=== PATIENT | female | born 1990 | race Caucasian/White ===

== ENCOUNTER → 2016-02-19 | Outpatient (CLI) | payer MEDICAID ==
[~2016-02-19] MED LIST: CIPR500T78 PO; IBP600T1 PO; IRON; NITR100C PO; PRENATAL VITAMIN; TYLENOL PO
--- NOTE | 2016-02-19 18:23 | Diagnostic Imaging Report ---
INDICATION: Size and dates Examination shows a single live intrauterine of 8 weeks 0 days +/- one week. Cardiac activity is seen with a rate of 158 beats per minute. No abnormality is seen at this time. IMPRESSION: There is a single live intrauterine of 8 weeks 0 days +/- one week. Dictated by: Dictated on workstation # [id number]
== END ==
LOC: RAD 12:57
PROVIDERS: ATTEND Family Medicine
DX: Z36 Encounter for antenatal screening of mother (principal); Z3A.08 8 weeks gestation of pregnancy
CPT/HCPCS: 76801

== ENCOUNTER → 2016-05-04 | Outpatient (CLI) | payer MEDICAID ==
--- NOTE | 2016-05-04 15:09 | Diagnostic Imaging Report ---
OB ultrasound. INDICATION: survey. FINDINGS: The heart rate is 153 beats per minute. The placenta is posterior. No placenta previa. No ventriculomegaly. The posterior fossa appears unremarkable. The stomach, the bladder, the cord insertion, and the kidneys appear unremarkable. The four-chamber view is not well seen as well as the spine and three-vessel cord due to position. growth parameters are all around 18 weeks and 5 days, concordant with the age based on first trimester ultrasound. IMPRESSION: Followup survey to reevaluate four-chamber view, spine and three-vessel cord is recommended. Dictated by: Dictated on workstation # [id number]
== END ==
LOC: RAD 09:31
PROVIDERS: ATTEND Family Medicine
DX: Z34.92 Encounter for supervision of normal pregnancy, unspecified, second trimester (principal)
CPT/HCPCS: 76805

== ENCOUNTER → 2016-06-17 | Outpatient (CLI) | payer MEDICAID ==
--- NOTE | 2016-06-17 13:06 | Diagnostic Imaging Report ---
INDICATION: Followup incomplete anatomical survey. COMPARISON: 05/04/2016. DISCUSSION: Transabdominal sonographic evaluation the gravid uterus was performed. Single live intrauterine is again demonstrated. EDC by the first ultrasound is 09/30/2016. Expected gestational age by the first ultrasound is 25 weeks 0 days. Normal amniotic fluid index measuring 10.6 in meters. presentation is cephalic. Grade 1 placenta is located posteriorly with no placenta previa. heart rate measures 161 beats per minute. There is good visualization of the four-chamber heart, spine, three-vessel cord on today's exam. No acute abnormality identified. IMPRESSION: 1. Single live intrauterine with good visualization of the four-chamber heart, spine, three-vessel cord. Dictated by: Dictated on workstation # [id number]
== END ==
LOC: RAD 10:08
PROVIDERS: ATTEND Family Medicine
DX: Z34.92 Encounter for supervision of normal pregnancy, unspecified, second trimester (principal); Z3A.25 25 weeks gestation of pregnancy
CPT/HCPCS: 76805

== ENCOUNTER 2016-08-23 11:32 | Outpatient (RCR) | payer MEDICAID ==
[~2016-08-23] VITALS: Ht 172.7 cm; Wt 100.7 kg
[2016-08-23 12:25] VITALS: BP 112/59
[2016-08-30 11:08] VITALS: BP 116/70
[2016-08-30 11:10] VITALS: BP 116/62
[2016-09-08 11:12] VITALS: BP 114/70
[2016-09-08 11:25] VITALS: BP 114/75
[2016-09-12 13:50] VITALS: BP 124/73
[2016-09-12 14:23] VITALS: BP 124/73
[2016-09-19 09:41] VITALS: BP 138/80
[2016-09-19 10:06] VITALS: BP 138/80
[2016-09-24] MEDS ORDERED: IBUP-1773 PO (08:33)
[2016-09-24] MEDS ORDERED: HYDR-3812 PO (08:33)
== END 2016-11-12 | disposition home or self-care (01) ==
LOC: WSo 11:32
PROVIDERS: ATTEND Family Medicine
DX: O24.419 Gestational diabetes mellitus in pregnancy, unspecified control (principal); Z3A.34 34 weeks gestation of pregnancy
CPT/HCPCS: 59025

== ENCOUNTER 2016-09-23 06:06 | Inpatient (IN) | payer MEDICAID ==
[2016-09-23] VITALS (51 sets, daily range): BP systolic 100–139; BP diastolic 56–81
[~2016-09-23] VITALS: Ht 172.7 cm; Wt 101.8 kg
--- OUTSIDE RECORDS SUMMARY | 2016-09-23 06:12 | XMS REPORT ---
Author KATHIA Brown [facility] eClinicalWorks Address Unknown Phone Unavailable Care Team Providers Care Fleet Service Clerk Name Role Phone KATHIA MORAN CP Unavailable Allergies, Adverse Reactions, Alerts Substance Reaction Event Type N.K.D.A. Info Not Available Non Drug Allergy Problems Problem Type Condition Code Onset Dates Condition Status Problem Lumbago 724.2 Active Problem General counseling for initiation of other contraceptive measures V25.02 Active Problem Surveillance of other previously prescribed contraceptive method V25.49 Active Assessment UTI (urinary tract infection) N39.0 Active Problem Cough 786.2 Active Problem Nondependent tobacco use disorder 305.1 Active Problem Surveillance of previously prescribed intrauterine contraceptive device V25.42 Active Problem Screening for malignant neoplasm of the cervix V76.2 Active Problem examination or test, negative result V72.41 Active Problem Unspecified contraceptive management V25.9 Active Problem Unspecified breast screening V76.10 Active Medications Medication Code System Code Instructions Start Date End Date Status Dosage Bactrim DS [facility] [address]-00 800-160 MG Orally 2 times a day Dec 01, 2014 Dec 04, 2014 1 tablet Procedures Procedure Coding System Code Date LAB [facility] CPT-4 NOBLL Dec 01, 2014 Office Visit, Est Pt., Level 2 CPT-4 81206 Dec 01, 2014 URINALYSIS, AUTO, W/O SCOPE CPT-4 00472 Dec 01, 2014 Vital Signs Date/Time: Dec 01, 2014 Temperature 98.5 F Weight 210.1 lbs Height 68 in BMI 31.94 Index Blood Pressure Diastolic 70 mmHg Blood Pressure Systolic 122 mmHg Cardiac Monitoring Heart Rate 92 bpm Results Name Result Date Reference Range Unit Abnormality Flag UA LONG DIP (IN HOUSE) CULTURE, URINE Summary Purpose eClinicalWorks Submission
--- OUTSIDE RECORDS SUMMARY | 2016-09-23 06:12 | XMS REPORT ---
Author Author FANNY FERNANDO Organization eClinicalWorks Address Unknown Phone Unavailable Care Team Providers Care Claims Attorney Name Role Phone FANNY FERNANDO CP Unavailable Allergies No Known Allergies Problems Problem Type Condition Code Onset Dates Condition Status Problem Lumbago 724.2 Active Problem General counseling for initiation of other contraceptive measures V25.02 Active Problem Surveillance of other previously prescribed contraceptive method V25.49 Active Problem Cough 786.2 Active Problem Nondependent tobacco use disorder 305.1 Active Problem Surveillance of previously prescribed intrauterine contraceptive device V25.42 Active Problem Screening for malignant neoplasm of the cervix V76.2 Active Problem examination or test, negative result V72.41 Active Problem Unspecified contraceptive management V25.9 Active Problem Unspecified breast screening V76.10 Active Medications No Known Medications Results No Known Results Summary Purpose eClinicalWorks Submission
[2016-09-23] MEDS ORDERED: MINERAL OIL CONCENTRATE 99.9% 15 ML UDC TOP PRN (06:15)
[2016-09-23] MEDS: D5 LR IV SOLUTION 1,000 ML IV SCH ×2 (06:53→14:08)
[2016-09-23 06:56] LABS: BASOPHILS % (AUTO) 0 % (0-10); EOSINOPHILS # (AUTO) 0.1 10^3/uL (0.0-0.3); EOSINOPHILS % (AUTO) 1 % (0-10); LYMPHOCYTES # (AUTO) 2.3 X 10^3 (1.0-4.0); LYMPHOCYTES % (AUTO) 27 % (12-44); MEAN CORPUSCULAR HEMOGLOBIN 27 PG (25-34); MEAN CORPUSCULAR HGB CONC 33 G/DL (32-36); MEAN CORPUSCULAR VOLUME 83 FL (80-99); MEAN PLATELET VOLUME 9.7 FL (7.4-10.4); MONOCYTES # (AUTO) 0.8 X 10^3 (0.0-1.0); MONOCYTES % (AUTO) 10 % (0-12); NEUTROPHILS # (AUTO) 5.3 X 10^3 (1.8-7.8); NEUTROPHILS % (AUTO) 63 % (42-75); PLATELET COUNT 165 10^3/uL (130-400); RED BLOOD COUNT 4.04 10^6/uL (4.35-5.85); RED CELL DISTRIBUTION WIDTH 13.3 % (10.0-14.5); WHITE BLOOD COUNT 8.5 10^3/uL (4.3-11.0)
[2016-09-23] MEDS ORDERED: OXYTOCIN/NORMAL SALINE 500 ML IV SCH ×2 (07:20→16:47)
--- NOTE | 2016-09-23 07:24 | History & Physical-OB ---
OB - Chief Complaint & HPI Date/Time Date of Admission: Date of Admission: Sep 23, 2016 at 06:06 Time Seen by Provider: 07:15 Chief Complaint/History OB-Reason for Admission/Chief: Induction of Labor Hx : 3 Hx Para: 2 Expected Date of Delivery: Sep 30, 2016 Gestational Age in Weeks: 39 Gestational Age in Days: 0 Admission Nurse Assessment Rev: Yes History of Labs GBS negative Allergies and Home Medications Allergies Coded Allergies: No Known Drug Allergies (Unverified , 08/07/08) OB - History Hx of Present Care: Yes Ultrasounds: Normal mid trimester US Obstetrical Complications: None Medical Complications: None Obstetrical History Hx Termination: No Hx Multiple Gestation: No Hx Stillbirth: No Hx Complication: No Hx Induced Hypertens: No Hx Maternal Gestational Diabet: No Delivery History Hx Dystocia: No Hx Large For Gestational Age I: No Hx Small for Gestational Age I: No Hx Section: No Hx Vaginal Delivery Post C-Sec: No Hx Blood Disorders: No Patient Past Medical History no chronic medical problems OB - Admission Exam Physical Exam Date Seen by Provider: Sep 23, 2016 Time Seen by Provider: 07:15 HEENT: Moist Membranes Heart: Rhythm Normal Lungs: Clear Abdomen: Gravid Cervical Dilatation: 2cm Effacement: 50% Station: -3 Membranes: Intact Heart Rate: 130's Accelerations: Accelerations Present Short Term Variability: Present Senior Care Variability: Average (6-25) Enamorado Scoring Tool (Modified) Dilation (cm): 1-2cm (1) Effacement (%): 31-51% (1) Descent/Station: -3 (0) Cervix Consistency: Medium(1) Cervix Position: Middle/Mid-Position (1) Add 1 point for: Each previous vaginal delivery (1) Enamorado Score: 5 Labs Laboratory Tests Test 09/23/16 06:40 Range/Units White Blood Count 8.5 4.3-11.0 10^3/uL Red Blood Count 4.04 L 4.35-5.85 10^6/uL Hemoglobin 11.0 L 11.5-16.0 G/DL Hematocrit 34 L 35-52 % Mean Corpuscular Volume 83 80-99 FL Mean Corpuscular Hemoglobin 27 25-34 PG Mean Corpuscular Hemoglobin Concent 33 32-36 G/DL Red Cell Distribution Width 13.3 10.0-14.5 % Platelet Count 165 130-400 10^3/uL Mean Platelet Volume 9.7 7.4-10.4 FL Neutrophils (%) (Auto) 63 42-75 % Lymphocytes (%) (Auto) 27 12-44 % Monocytes (%) (Auto) 10 0-12 % Eosinophils (%) (Auto) 1 0-10 % Basophils (%) (Auto) 0 0-10 % Neutrophils # (Auto) 5.3 1.8-7.8 X 10^3 Lymphocytes # (Auto) 2.3 1.0-4.0 X 10^3 Monocytes # (Auto) 0.8 0.0-1.0 X 10^3 Eosinophils # (Auto) 0.1 0.0-0.3 10^3/uL Basophils # (Auto) 0.0 0.0-0.1 10^3/uL OB - Assessment/Plan/Diagnosis Assessment Assessment: induction of labor Plan Plan: Induction Induction Method: AROM Other Plan patient desires epidural pitocin if necessary ESE PHILIPPE MD Sep 23, 2016 07:24
[2016-09-23] MEDS ORDERED: SUFENTA 0.6MCG/ML BUPIVA 0.125 100 ML ONE (08:01)
[2016-09-23] MEDS ORDERED: BUPIVACAINE 0.25% 30 ML (SENSORCAINE) VIAL ONE (08:13)
[2016-09-23] MEDS ORDERED: fentaNYL INJECTION 100 MCG/2 ML AMP ONE (08:13)
[2016-09-23] MEDS ORDERED: LACTATED RINGERS 1,000 ML IV ONE (11:27)
[2016-09-23] MEDS ORDERED: NALOXONE 0.4 MG/ML 1 ML (NARCAN) VIAL IV PRN (11:30)
[2016-09-23] MEDS ORDERED: diphenhydrAMINE 50 MG/ML INJ (BENADRYL) IV PRN (11:30)
[2016-09-23] MEDS ORDERED: EPIDURAL (SUFENTA 0.6MCG/ML BUPIVA 0.125%) 100 ML BAG EPI SCH (11:30)
[2016-09-23] MEDS ORDERED: CATHETER FLUSH 10 ML SYR IV PRN (11:30)
[2016-09-23] MEDS ORDERED: ONDANSETRON 4 MG/2 ML (SDV) Z0FRAN IV PRN (11:30)
[2016-09-23] MEDS ORDERED: CATHETER FLUSH 10 ML SYR IV SCH (14:00)
[2016-09-23] MEDS ORDERED: MEPIVACAINE (CARBOCAINE) 2% 50 ML VIAL ONE (16:07)
--- NOTE | 2016-09-23 16:47 | OB Labor & Delivery Record ---
L&D History Date of Service Date of Service: Sep 23, 2016 History Expected Date of Delivery: Sep 30, 2016 Gestational Age in Weeks: 39 Hx : 3 Hx Para: 2 Complications Events: Routine care Operative Indications (Cesarea: N/A-Vaginal Delivery Intrapartal Events: None L&D Stage1 Stage One Onset of Labor - Date: Sep 23, 2016 Onset of Labor - Time: 07:15 Monitors and Tracing Monitor Mode: Internal Heart Rate: 125 Monitor Accelerations: Uniform Monitor Decelerations: Variable Station: -1 Prison Variability: Average (6-10) Short Term Variability: Present Presentation: Vertex Vital Signs VS - Last 72 Hours, by Label 09/23/16 09/23/16 09/23/16 09/23/16 06:30 08:25 08:30 08:35 Pulse 106 88 96 99 Resp 18 18 18 18 B/P (MAP) 121/81 118/60 119/70 113/57 Pulse Ox 99 100 99 O2 Delivery Room Air Room Air Room Air Room Air 09/23/16 09/23/16 09/23/16 09/23/16 08:40 08:45 08:48 08:51 Pulse 96 102 99 88 Resp 18 18 18 18 B/P (MAP) 124/63 113/68 100/61 117/80 Pulse Ox 99 98 99 99 O2 Delivery Room Air Room Air Room Air Room Air 09/23/16 09/23/16 09/23/16 09/23/16 08:55 08:58 09:00 09:03 Pulse 79 86 89 96 Resp 18 18 18 18 B/P (MAP) 106/68 110/67 116/73 114/73 Pulse Ox 98 O2 Delivery Room Air Room Air Room Air Room Air 09/23/16 09/23/16 09/23/16 09/23/16 09:06 09:09 09:11 09:15 Pulse 93 88 89 100 Resp 18 18 18 18 B/P (MAP) 121/56 111/58 112/61 Pulse Ox 98 99 99 O2 Delivery Room Air Room Air Room Air Room Air 09/23/16 09/23/16 09/23/16 09/23/16 09:30 09:45 10:00 10:15 Temp 97.8 Pulse 75 71 73 90 Resp 18 18 18 B/P (MAP) 119/70 103/58 113/59 Pulse Ox 98 98 98 99 O2 Delivery Room Air Room Air Room Air Room Air 09/23/16 09/23/16 09/23/16 09/23/16 10:30 10:45 11:00 11:15 Pulse 100 111 96 97 Resp 18 18 B/P (MAP) 121/70 121/69 114/64 Pulse Ox 99 100 99 99 O2 Delivery Room Air Room Air Room Air Room Air 09/23/16 09/23/16 09/23/16 09/23/16 11:30 11:45 12:00 12:15 Temp 97.5 Pulse 99 83 77 80 Resp 18 18 18 B/P (MAP) 119/63 116/75 119/69 106/60 Pulse Ox 99 99 O2 Delivery Room Air Room Air Room Air Room Air 09/23/16 09/23/16 09/23/16 09/23/16 12:30 12:45 13:00 13:15 Pulse 90 88 73 98 Resp 18 18 18 B/P (MAP) 115/76 117/72 111/68 115/71 O2 Delivery Room Air Room Air Room Air Room Air 09/23/16 09/23/16 09/23/16 09/23/16 13:30 13:45 14:00 14:15 Temp 96.7 Pulse 74 78 78 78 Resp 18 18 18 18 B/P (MAP) 104/70 109/70 108/70 116/58 O2 Delivery Room Air Room Air Room Air Room Air 09/23/16 09/23/16 09/23/16 09/23/16 14:30 14:45 15:00 15:15 Pulse 91 90 80 83 Resp 18 18 18 18 B/P (MAP) 110/71 119/75 122/69 110/63 O2 Delivery Room Air Room Air Room Air Room Air 09/23/16 09/23/16 09/23/16 15:30 15:45 16:00 Pulse 78 81 88 Resp 18 18 18 B/P (MAP) 111/63 112/62 115/60 O2 Delivery Room Air Room Air Room Air Signs of Distress by FHT Signs of Distress no Rupture of Membranes Spontaneous Ruture of Membrane: No Amniotic Membrane Rupture Time: 0715 Amniotic Membrane Fluid Desc.: Clear Induction/Anesthesia Epidural Cath Placement - Time: 0832 L&D Stage2 Stage Two Stage II Date: Sep 23, 2016 Stage II Time: 16:31 Monitors and Tracing Monitor Mode: Internal Heart Rate: 125 Monitor Accelerations: Uniform Monitor Decelerations: Variable Video System Repairer Variability: Average (6-10) Short Term Variability: Present Position: Left Occiput Anterior Presentation: Vertex Signs of Distress by FHT Signs of Distress no Cord Descript/Complications Cord Vessel Description: 3 Vessels Delivery Type Delivery Method: Spontaneous Vaginal Anterior Shoulder: Left Episiotomy/Perineal Laceration Laceraction(s)/Extensions: No Condition of Infant Delivery 1 minute Comment: 9 5 minute Comment: 9 Condition of Condition of : Living Exam: No Observed Abnormalities Resuscitation Resuscitation: N/A - Spontaneous Resp L&D Stage3 Stage Three Stage III Date: Sep 23, 2016 Stage III Time: 16:35 Pictocin Pitocin Administration mu/min: 24 Pitocin ml/hr: 24 Pitocin Administration Comment: pitocin not increased due to change in cervical exam. Placenta Delivery Placenta Delivery: Spontaneous Delivery Summary Summary Vaginal blood loss >500ml: No 400 Condition of Delivery Examined: Cervix Examined Post Hemorrhage: No ESE PHILIPPE MD Sep 23, 2016 16:47
[2016-09-23] MEDS ORDERED: MEASLES,MUMPS,RUBELLA 1 EA INJ SQ ONE (17:00)
[2016-09-23] MEDS ORDERED: BENZOCAINE/MENTHOL (DERMOPLAST) 56 ML CAN TP PRN (17:00)
[2016-09-23] MEDS ORDERED: WITCH HAZEL(TUCKS) 40 EA JAR TOP PRN (17:00)
[2016-09-23] MEDS ORDERED: TETANUS,DIPTH,PERTUSS P/F (BOOSTRIX) 0.5 ML VIAL IM ONE (17:00)
[2016-09-23] MEDS: IBUPROFEN 600 MG (MOTRIN) TAB PO SCH ×2 (17:29→23:40)
[2016-09-23] MEDS: CATHETER FLUSH 10 ML SYR IV SCH (20:34)
[2016-09-23] MEDS: HYDROcodone/APAP 5 MG/325 MG (LORTAB) TAB PO PRN (20:34)
[2016-09-24 00:39] VITALS: BP 120/69
[2016-09-24] MEDS: HYDROcodone/APAP 5 MG/325 MG (LORTAB) TAB PO PRN ×2 (04:22→08:44)
[2016-09-24 04:32] VITALS: BP 105/73
[2016-09-24] MEDS: IBUPROFEN 600 MG (MOTRIN) TAB PO SCH ×3 (05:52→17:30)
[2016-09-24] MEDS: CATHETER FLUSH 10 ML SYR IV SCH (06:15)
[2016-09-24 06:32] LABS: BASOPHILS % (AUTO) 0 % (0-10); EOSINOPHILS # (AUTO) 0.1 10^3/uL (0.0-0.3); EOSINOPHILS % (AUTO) 1 % (0-10); LYMPHOCYTES # (AUTO) 2.7 X 10^3 (1.0-4.0); LYMPHOCYTES % (AUTO) 28 % (12-44); MEAN CORPUSCULAR HEMOGLOBIN 27 PG (25-34); MEAN CORPUSCULAR HGB CONC 33 G/DL (32-36); MEAN CORPUSCULAR VOLUME 84 FL (80-99); MEAN PLATELET VOLUME 9.9 FL (7.4-10.4); MONOCYTES % (AUTO) 11 % (0-12); NEUTROPHILS # (AUTO) 5.8 X 10^3 (1.8-7.8); NEUTROPHILS % (AUTO) 61 % (42-75); PLATELET COUNT 145 10^3/uL (130-400); RED BLOOD COUNT 3.55 10^6/uL (4.35-5.85); RED CELL DISTRIBUTION WIDTH 13.3 % (10.0-14.5); WHITE BLOOD COUNT 9.5 10^3/uL (4.3-11.0)
[2016-09-24] MEDS ORDERED: PRENATAL VITAMIN 1 EA TAB PO SCH (07:00)
[2016-09-24 08:00] VITALS: BP 117/81
--- NOTE | 2016-09-24 08:30 | Discharge Summary ---
Diagnosis/Chief Complaint Date of Admission Sep 23, 2016 at 06:06 Date of Discharge September 24, 2016 Discharge Date: Sep 24, 2016 Admission Diagnosis Admission Diagnosis 1. Intrauterine at 39 weeks gestation Discharge Diagnosis 1. Intrauterine at 39 weeks gestation Reason Hospital Visit 26-year-old 3 now term 3 female who initially presented to labor and delivery during the morning of September 23, 2016 for induction of labor at 39 weeks gestation. Her EDC was noted to be September 30, 2016. Her care was essentially unremarkable. She was noted to be group B strep vaginal culture negative at 36 weeks Discharge Summary-OBS Procedures 1. Epidural per anesthesia 2. Spontaneous vaginal delivery Discharge Physical Examination Allergies: Coded Allergies: No Known Drug Allergies (Unverified , 08/07/08) Vitals & I&Os Vital Signs Date Time Temp Pulse Resp B/P (MAP) Pulse Ox O2 Delivery O2 Flow Rate FiO2 09/24/16 04:32 95.9 69 16 105/73 100 Room Air General Appearance: No Acute Distress Respiratory: Clear to Auscultation Cardiovascular: Regular Rate Abdominal: Soft (with uterus firm) Hospital Course following admission patient underwent amniotomy with placement of scalp electrode. Fluid was noted to be clear. Patient contracted but required Pitocin augmentation. She did receive epidural per anesthesia and tolerated well. Once the completion she was allowed to push and delivered over an intact perineum a term viable male. Infant received Apgars of 9 at 1 minute and 9 at 5 minutes. Following delivery patient underwent routine care orders. She was noted to have no complications during the remainder of hospital stay. Her hemoglobin prior to delivery was 11.0 and the day after 9.7. She was asymptomatic with regards to any dizziness. She tolerated regular diet. She was felt ready for dismissal during the evening of September 24, 2016. Pending Labs Laboratory Tests 09/24/16 06:15: White Blood Count 9.5, Red Blood Count 3.55, Hemoglobin 9.7, Hematocrit 30, Mean Corpuscular Volume 84, Mean Corpuscular Hemoglobin 27, Mean Corpuscular Hemoglobin Concent 33, Red Cell Distribution Width 13.3, Platelet Count 145, Mean Platelet Volume 9.9, Neutrophils (%) (Auto) 61, Lymphocytes (%) (Auto) 28, Monocytes (%) (Auto) 11, Eosinophils (%) (Auto) 1, Basophils (%) (Auto) 0, Neutrophils # (Auto) 5.8, Lymphocytes # (Auto) 2.7, Monocytes # (Auto) 1.0, Eosinophils # (Auto) 0.1, Basophils # (Auto) 0.0 Discharge Instructions to patient/family Please see electonic discharge instructions given to patient. Discharge Medications Reviewed and agree with Discharge Medication list on patient's Discharge Instruction sheet Clinical Quality Measures DVT/VTE Risk/Contraindication: Risk Factor Score Per Nursin RFS Level Per Nursing on Admit: 1=Low/No VTE PPX ESE PHILIPPE MD Sep 24, 2016 08:30
--- NOTE | 2016-09-24 08:32 | Discharge Inst-Women's Service ---
Discharge Inst-Women's Serv Depart Medication/Instructions New, Converted or Re-Newed RX: RX on Chart Consults/Follow Up Additional Follow Up: Yes (with Dr. Philippe in one week) Activity Activity: Activity as Tolerated Driving Instructions: You May Drive Nothing Inside Vagina: No Gardi (for 6 weeks) Diet Discharge Diet: Regular Diet Return to The Hospital For: as below Symptoms to Report to : Bleeding Excessive, Pain Increased, Fever Over 101 Degrees F, Vaginal Discharge Foul For Any Problems or Questions: Contact Your Physician ESE PHILIPPE MD Sep 24, 2016 08:32
[2016-09-24] MEDS ORDERED: HYDR-3812 PO (08:33)
[2016-09-24] MEDS ORDERED: IBUP-1773 PO (08:33)
[2016-09-24 12:00] VITALS: BP 114/70
--- NOTE | 2016-09-24 13:13 | Anesthesia-Regional Post-Op ---
Regional Patient Condition Mental Status: Alert, Oriented x3 Circulation: Same as Pre-Op Headache: Absent Sensation: Full Recovery Motor Block: Absent Post Op Complications Complications None Follow Up Care/Instructions Patient Instructions None needed. Anesthesia/Patient Condition Patient is doing well, no complaints, stable vital signs, no apparent adverse anesthesia problems. No complications reported per nursing. DEVIN MCNEILL CRNA Sep 24, 2016 13:13
[2016-09-24] MEDS ORDERED: TETANUS,DIPTH,PERTUSS P/F (BOOSTRIX) 0.5 ML VIAL IM ONE (14:01)
[2016-09-24 16:00] VITALS: BP 113/72
== END 2016-09-24 18:55 | disposition home or self-care (01) | DRG 775 ==
LOC: LDRP 06:06 → ENPENDDIS 09-24 19:00
PROVIDERS: ADMIT Family Medicine; ATTEND Family Medicine
PROC: 10E0XZZ Delivery of Products of Conception, External Approach (ICD-10-PCS; principal; 2016-09-23)
PROC: 10907ZC Drainage of Amniotic Fluid, Therapeutic from Products of Conception, Via Natural or Artificial Opening (ICD-10-PCS; 2016-09-23)
DX: O80 Encounter for full-term uncomplicated delivery (principal); Z3A.39 39 weeks gestation of pregnancy; Z37.0 Single live birth; Z23 Encounter for immunization
CPT/HCPCS: 36415; 85025; 86850; 86900; 86901; 90715

== ENCOUNTER → 2017-08-22 | Outpatient (CLI) | payer MEDICAID ==
[~2017-08-22] MED LIST changes: +ACHD5005 PO; +IBUP-1773 PO
--- NOTE | 2017-08-22 16:19 | Diagnostic Imaging Report ---
PROCEDURE: US OB SINGLE FETUS <14 WKS. TECHNIQUE: Multiple real-time grayscale images were obtained over the gravid uterus in various projections. INDICATION: dates. There is an intrauterine gestational sac containing a pole. [place]-rump length measurement is 5.5 cm consistent with 12 weeks 1 day gestation. heart rate was recorded at 152 beats per minute. No perigestational sac hemorrhage is seen. The ovaries were obscured by bowel gas. No free fluid is seen. IMPRESSION: Single live IUP, 12 weeks 1 day gestational age. The estimated date of confinement sonographically is 03/05/2018. Dictated by: Dictated on workstation # [id number]
== END ==
LOC: RAD 15:18
PROVIDERS: ATTEND Family Medicine
DX: Z34.91 Encounter for supervision of normal pregnancy, unspecified, first trimester (principal); Z3A.12 12 weeks gestation of pregnancy
CPT/HCPCS: 76801

== ENCOUNTER → 2017-10-18 | Outpatient (CLI) | payer MEDICAID ==
--- NOTE | 2017-10-18 10:04 | Diagnostic Imaging Report ---
INDICATION: survey. COMPARISON: 08/22/2017 TECHNIQUE: Multiple real-time grayscale images were obtained over the gravid uterus. COMPARISON: None FINDINGS: Flores intrauterine gestation is in cephalic position with normal volume amniotic fluid, the placenta anterior with no abruption or previa. No pathological finding at the anatomical survey is revealed however the cord and its insertion are suboptimally seen on a positional basis. Heart rate regular at 147 beats per minute average, however the rhythm appeared irregular on sampled tracings. The measurements correlate with an average age 20 week 1 day reflective of normal growth from prior. IMPRESSION: Flores gestation showed normal interval growth measuring 20 week 1 day. Limited visualization of the cord and its insertion on a positional basis. Submitted tracings suggest irregular cardiac rhythm. Biometrical measurements are as follows: Biparietal 4.7 cm, age 20 weeks 2 days. Head circumference 17.5 cm, age 20 weeks 1 days. Abdominal circumference 14.6 cm, age 20 weeks 1 days. Femur length 3.2 cm, age 19 weeks 6 days. Sonographic estimate age: 20 weeks 1 days. Sonographic estimated date of delivery: 03/06/18. Estimated Weight: 320 gm (+/- 47 gm). LMP percentile: 25%. heart rate: 147 beats per minute. number: 1 of 1. IMPRESSION: Dictated by: Dictated on workstation # [id number]
== END ==
LOC: RAD 09:07
PROVIDERS: ATTEND Family Medicine
DX: Z36.89 Encounter for other specified antenatal screening (principal); Z3A.20 20 weeks gestation of pregnancy
CPT/HCPCS: 76805

== ENCOUNTER 2018-02-26 06:10 | Inpatient (IN) | payer MEDICAID ==
[2018-02-26] VITALS (49 sets, daily range): BP systolic 96–174; BP diastolic 52–88
[~2018-02-26] VITALS: Ht 172.7 cm; Wt 113.4 kg
--- NOTE | 2018-02-26 06:10 | NUR ---
BREEZY ABREU presented to unit via ambulationfrom home, accompanied by SO, with plan of INDUCTION. BREEZY ABREU weighed, gowned, voided, and to bed. EFHM and TOCO applied, VS taken. BREEZY ABREU oriented to bed controls, call light, TV, heat, and A/C controls.
--- OUTSIDE RECORDS SUMMARY | 2018-02-26 06:20 | XMS REPORT ---
Author Author WILFRIDO Zazueta Organization [facility] Address [address] [place] [address] Care Team Providers Care Operators Teacher Name Role Phone WILFRIDO Zazueta Unavailable PROBLEMS Type Condition ICD9-CM Code [id number] Code Onset Dates Condition Status SNOMED Code Problem Surveillance of previously prescribed intrauterine contraceptive device V25.42 Active 705068334832775 Problem examination or test, negative result V72.41 Active 625985882 Problem General counseling for initiation of other contraceptive measures V25.02 Active 464105660747033 Problem Screening for malignant neoplasm of the cervix V76.2 Active 587451217 Problem Unspecified breast screening V76.10 Active 956705145 Problem Unspecified contraceptive management V25.9 Active 721377307 Problem Surveillance of other previously prescribed contraceptive method V25.49 Active 513746834 Problem Irregular bleeding N92.6 Active 28916594 Problem Adjustment disorder with anxious mood F43.22 Active 05376133 Problem Lumbago 724.2 Active 143875748 Problem Cough 786.2 Active 62275957 Problem Constipation, unspecified constipation type K59.00 Active 80681618 Problem Nondependent tobacco use disorder 305.1 Active 041946182 ALLERGIES No Information ENCOUNTERS Encounter Location Date Diagnosis [facility] [address] [place] [address]75- [address]28 May, Dysuria R30.0 ; Irregular bleeding N92.6 and Acute cystitis with hematuria N30.01 [facility] [address] [place] [address]41 -[address]17 Apr, Sore throat J02.9 and Strep pharyngitis J02.0 [facility] [address] [place] [address] 70791 -6059 Feb, Cough R05 and Influenza B J10.1 [facility] [address] [place] [address] 36327- 1285 Jan, Encounter for initial prescription of other contraceptives Z30.018 and Encounter for oral contraception initial prescription Z30.011 [facility] [address] [place] [address] [id number] Nov, Dental examination Z01.20 [place] [id number] [place] [address] 04071- 9534 Sep, Screening for deficiency anemia Z13.0 [place] [id number] [place] [address] 79242- 9445 Jul, Adjustment disorder with anxious mood F43.22 [place] [id number] [place] [address] 10930- 4187 Feb, Acute upper respiratory infection, unspecified J06.9 ; Other viral agents as the cause of diseases classified elsewhere B97.89 ; Constipation, unspecified constipation type K59.00 and 10 weeks gestation of Z3A.10 [place] [id number] [place] [address] 85498- 0239 Jan, Encounter for test Z32.00 [facility] [address] [place] [address] 05548 -4161 Jan, Dysuria R30.0 and Acute cystitis with hematuria N30.01 [place] [id number] [place] [address] 54345- 7315 Mar, [facility] [id number] [place] [address] 61057- 4549 Feb, Dysuria R30.0 ; Urinary tract infection, site not specified N39.0 and Hematuria, unspecified R31.9 [place] [id number] [place] [address] 44245- 3293 Nov, UTI (urinary tract infection) N39.0 [place] [id number] [place] [address] 85174- 6048 Jul, [facility] [place] [facility] [address] [id number] [place] [address] 2463 May, [facility] [place] [facility] [address] [id number] [place] [address]- 2870 May, [facility] [place] [facility] [address] [id number] [place] [address]- 1028 Apr, [facility] [place] [facility] [address] [id number] [place] [address]- 2337 Apr, [facility] [place] [facility] [address] [id number] [place] [address]- 3576 Nov, [facility] [place] [facility] [address] [id number] [place] [address]- 6463 Nov, [facility] [place] [facility] [address] [id number] [place] [address]- 5202 Sep, [facility] [place] [facility] [address] [id number] [place] [address]- 8340 Sep, [facility] [place] [facility] [address] [id number] [place] [address]- 0552 Aug, [facility] [place] [facility] [address] [id number] [place] [address]- 0004 Aug, [facility] [place] [facility] [address] [id number] [place] [address]- 1202 Aug, [facility] [place] [facility] [address] [id number] [place] [address]- 7901 Jul, [facility] [place] [facility] [address] [id number] [place] [address]- 4447 June, [facility] [place] [facility] [address] [id number] [place] [address]- 3820 June, [facility] [place] [facility] [address] [id number] [place] [address]- 6856 Apr, [facility] [place] [facility] [address] [id number] [place] [address]- 8497 Apr, [facility] [place] [facility] [address] [id number] [place] [address]- 8095 Apr, [facility] [place] [facility] [address] [id number] [place] [address]- 3357 Apr, [facility] [place] [facility] [address] [id number] [place] [address]- 2706 Apr, [facility] [place] [facility] [address] [id number] [place] [address]- 1402 Jan, [facility] [place] [facility] [address] [id number] [place] [address]- 8892 Jan, [facility] [place] [facility] [address] [id number] [place] [address]- 6996 Oct, [facility] [place] [facility] [address] [id number] [place] [address]- 0482 Aug, [facility] [place] [facility] [address] [id number] [place] [address]- 3371 Jul, [facility] [place] [facility] [address] [id number] [place] [address]- 9569 Jul, [facility] [place] [facility] [address] [id number] [place] [address]- 0881 Aug, [facility] [place] [facility] [address] [id number] [place] [address]- 9046 May, [facility] [place] [facility] [address] [id number] [place] [address]- 6529 Feb, [facility] [place] [facility] [address] [id number] [place] [address]- 7301 Feb, [facility] [place] [facility] [address] [id number] [place] [address]- 5397 Feb, [facility] [place] [facility] [address] [id number] [place] [address]- 4582 Nov, [facility] [place] [facility] [address] [facility] [id number] [place] [address] [address] 11 Jun, 2009 IMMUNIZATIONS No Known Immunizations SOCIAL HISTORY Never Assessed REASON FOR VISIT intake PLAN OF CARE Activity Details Follow Up 2 Weeks Reason:Adjustment disorder VITAL SIGNS MEDICATIONS Unknown Medications RESULTS No Results PROCEDURES Procedure Date Ordered Result Body Site Psych diagnostic evaluation, new patient July 14, 2016 INSTRUCTIONS MEDICATIONS ADMINISTERED No Known Medications MEDICAL (GENERAL) HISTORY Type Description Date Hospitalization History Pregnancies x 3 2017
--- OUTSIDE RECORDS SUMMARY | 2018-02-26 06:20 | XMS REPORT ---
Author Author AILYN TEAUGE [facility] Address [address] [place] [address] Care Team Providers Care Exhibits Manager Name Role Phone AILYN TEAGUE Unavailable PROBLEMS Type Condition ICD9-CM Code [id number] Code Onset Dates Condition Status SNOMED Code Problem Surveillance of previously prescribed intrauterine contraceptive device V25.42 Active 360335706764151 Problem examination or test, negative result V72.41 Active 905383120 Problem General counseling for initiation of other contraceptive measures V25.02 Active 555993385945904 Problem Screening for malignant neoplasm of the cervix V76.2 Active 919060590 Problem Unspecified breast screening V76.10 Active 046550334 Problem Unspecified contraceptive management V25.9 Active 317356897 Problem Surveillance of other previously prescribed contraceptive method V25.49 Active 573417717 Problem Irregular bleeding N92.6 Active 50510029 Problem Adjustment disorder with anxious mood F43.22 Active 68966405 Problem Lumbago 724.2 Active 634955640 Problem Cough 786.2 Active 18614378 Problem Constipation, unspecified constipation type K59.00 Active 03922260 Problem Nondependent tobacco use disorder 305.1 Active 676956573 ALLERGIES No Information ENCOUNTERS Encounter Location Date Diagnosis [facility] [address] [address] June, Encounter for test, result unknown Z32.00 [facility] [address] [address]- 7856 04 May, 2017 Dysuria R30.0 ; Irregular bleeding N92.6 and Acute cystitis with hematuria N30.01 [facility] [id number] [address] Apr, Sore throat J02.9 and Strep pharyngitis J02.0 [facility] [id number] [place] [address] 15559 -4770 Feb, Cough R05 and Influenza B J10.[address] [address]- [address]39 Jan, Encounter for initial prescription of other contraceptives Z30.018 and Encounter for oral contraception initial prescription Z30.011 [facility] [id number] [place] [address] [id number] Nov, Dental examination Z01.20 [place] [id number] [place] [address] 60384- 2480 15 Sep, 2016 Screening for deficiency anemia Z13.[address] 8[address]98- 5722 Jul, Adjustment disorder with anxious mood F43.22 [place] [id number] [place] [address] 70462- 2408 Feb, Acute upper respiratory infection, unspecified J06.9 ; Other viral agents as the cause of diseases classified elsewhere B97.89 ; Constipation, unspecified constipation type K59.00 and 10 weeks gestation of Z3A.10 [place] [id number] [place] [address] 50629- 1459 Jan, Encounter for test Z32.00 [facility] [id number] [place] [address] 26596 -1947 Jan, Dysuria R30.0 and Acute cystitis with hematuria N30.01 [place] [id number] [place] [address] 26897- 5061 Mar, [place] [id number] [place] [address] 31212- 4112 Feb, Dysuria R30.0 ; Urinary tract infection, site not specified N39.0 and Hematuria, unspecified R31.9 [place] [id number] [place] [address] 24386- 9773 Nov, UTI (urinary tract infection) N39.0 [facility] [place] [facility] [address] [id number] [place] [address]- 0930 Jul, [facility] [place] [facility] [address] [id number] [place] [address]- 6400 May, [facility] [place] [facility] [address] [id number] [place] [address]- 2713 May, [facility] [place] [facility] [address] [id number] [place] [address]- 4423 Apr, [facility] [place] [facility] [address] [id number] [place] [address]- 1715 Apr, [facility] [place] [facility] [address] [id number] [place] [address]- 4761 Nov, [facility] [place] [facility] [address] [id number] [place] [address]- 1738 Nov, [facility] [place] [facility] [address] [id number] [place] [address]- 0646 Sep, [facility] [place] [facility] [address] [id number] [place] [address]- 8580 Sep, [facility] [place] [facility] [address] [facility] [id number] [address]- 5638 Aug, [facility] [place] [facility] [address] [id number], [place] [address]- 5067 Aug, [facility] [place] [facility] [address] [id number], [place] [address]- 1490 Aug, [facility] [place] [facility] [address] [id number] [place] [address]- 0130 Jul, [facility] [place] [facility] [address] [id number] [place] [address]- 5504 June, [facility] [place] [facility] [address] [id number] [place] [address] June, [facility] [place] [facility] [address] [id number] [address]- 9876 Apr, [facility] [address] [id number] [place] [address]- 0209 Apr, [facility] [place] [facility] [address] [id number] [place] [address]- 7559 Apr, [facility] [address] [id number] [place] [address]- 5974 Apr, [facility] [place] [facility] [address] [id number] [place] [address]- 0852 Apr, [facility] [address] [id number] [place] [address]- 9831 Jan, [facility] [place] [facility] [address] [id number] [place] [address]- 2571 Jan, [facility] [address] [facility] [id number] [place] [address]- 9118 Oct, [facility] [place] [facility] [address] [id number] [place] [address]- 3740 Aug, [facility] [address] [id number] [place] [address]- 6056 Jul, [facility] [place] [facility] [address] [facility] [id number] [place] [address]- 9656 Jul, [facility] [address] [id number] [place] [address]- 6396 Aug, [facility] [place] [facility] [address] [id number] [place] [address]- 1947 May, [facility] [place] [facility] [address] [id number] [place] [address]- 0479 Feb, [facility] [place] [facility] [address] [id number] [place] [address]- 2772 Feb, [facility] [place] [facility] [address] [id number] [place] [address]- 9269 Feb, [facility] [place] [facility] [address] [facility] [id number] [place] [address]- 7051 14 Nov, 2009 [facility] [address] [facility] [id number] [address]- 5545 11 Jun, 2009 IMMUNIZATIONS No Known Immunizations SOCIAL HISTORY Never Assessed REASON FOR VISIT test (walk-in) PLAN OF CARE VITAL SIGNS MEDICATIONS Unknown Medications RESULTS Name Result Date Reference Range TEST, URINE (IN HOUSE) 2017-07-05 RESULTS Positive Lot # [id number] Control + Exp date 11/2018 PROCEDURES Procedure Date Ordered Result Body Site URINE TEST July 05, 2017 INSTRUCTIONS MEDICATIONS ADMINISTERED No Known Medications MEDICAL (GENERAL) HISTORY Type Description Date Hospitalization History Pregnancies x 3 2016
--- OUTSIDE RECORDS SUMMARY | 2018-02-26 06:20 | XMS REPORT ---
Author Author HARISH MARTINEZ [facility] Address [address] [place] [address] Care Team Providers Care Regulatory Compliance Officer Name Role Phone HARISH MARTINEZ Unavailable PROBLEMS Type Condition ICD9-CM Code IYI75-DV Code Onset Dates Condition Status SNOMED Code Problem Surveillance of previously prescribed intrauterine contraceptive device V25.42 Active 961001263068552 Problem examination or test, negative result V72.41 Active 800400729 Problem General counseling for initiation of other contraceptive measures V25.02 Active 646775145276854 Problem Screening for malignant neoplasm of the cervix V76.2 Active 406485751 Problem Unspecified breast screening V76.10 Active 289844954 Problem Unspecified contraceptive management V25.9 Active 367068157 Problem Surveillance of other previously prescribed contraceptive method V25.49 Active 025175018 Problem Irregular bleeding N92.6 Active 57946886 Problem Adjustment disorder with anxious mood F43.22 Active 71249784 Problem Lumbago 724.2 Active 616488657 Problem Cough 786.2 Active 08157780 Problem Constipation, unspecified constipation type K59.00 Active 86497027 Problem Nondependent tobacco use disorder 305.1 Active 584239658 ALLERGIES No Known Allergies ENCOUNTERS Encounter Location Date Diagnosis [facility] [address] [place] [address]73- 3627 June, Encounter for test, result unknown Z32.00 [facility] [address] [address]- 6[address] 04 May, 2017 Dysuria R30.0 ; Irregular bleeding N92.6 and Acute cystitis with hematuria N30.01 [facility] [id number] [address] Apr, Sore throat J02.9 and Strep pharyngitis J02.0 [facility] [id number] [place] [address] 97872 -1485 Feb, Cough R05 and Influenza B J10.1 [place] [address] [address]- 0771 Jan, Encounter for initial prescription of other contraceptives Z30.018 and Encounter for oral contraception initial prescription Z30.011 [facility] [address] [id number] Nov, Dental examination Z01.[address] [address]- [address] Sep, Screening for deficiency anemia Z13.[address] [address]- 2422 Jul, Adjustment disorder with anxious mood F43.[address] [address]10- 3210 Feb, Acute upper respiratory infection, unspecified J06.9 ; Other viral agents as the cause of diseases classified elsewhere B97.89 ; Constipation, unspecified constipation type K59.00 and 10 weeks gestation of Z3A.10 [place] [address] [place] [address] 20562- 2798 Jan, Encounter for test Z32.00 [facility] [id number] [place] [address] 12541 -6923 Jan, Dysuria R30.0 and Acute cystitis with hematuria N30.01 [place] [address] [address]40- 1169 Mar, [address] [address]- 1681 Feb, Dysuria R30.0 ; Urinary tract infection, site not specified N39.0 and Hematuria, unspecified R31.[address] [address]- 5905 Nov, UTI (urinary tract infection) N39.0 [facility] [address] [id number] [place] [address]- 5425 Jul, [facility] [address] [id number] [place] [address]- 7904 May, [facility] [address] [id number] [place] [address]- 5031 May, [facility] [address] [id number] [place] [address]- 9306 Apr, [facility] [address] [id number] [place] [address]- 0264 Apr, [facility] [address] [id number] [place] [address]- 0656 Nov, [facility] [address] [id number] [place] [address]- 2229 Nov, [facility] [address] [id number] [place] [address]- 6616 Sep, [facility] [address] [id number] [place] [address]- 2293 Sep, [facility] [address] [id number] [place] [address]- 8648 Aug, [facility] [address] [id number] [address]- 5121 Aug, [facility] [address] [id number] [place] [address]- 3094 Aug, [facility] [address] [id number] [place] 7274 Jul, [facility] [address] [id number] [place] [address]- 2203 June, [facility] [address] [id number] [place] [address]- 2097 June, [facility] [address] [id number] [place] [address]- 3156 Apr, [facility] [place] [facility] [address] [id number] [place] [address]- 2886 Apr, [facility] [place] [facility] [address] [id number] [place] [address]- 7076 Apr, [facility] [place] [facility] [address] [id number] [place] [address]- 4546 Apr, [facility] [place] [facility] [address] [id number] [place] [address]- 2851 Apr, [facility] [place] [facility] [address] [id number] [place] [address]- 1529 Jan, [facility] [place] [facility] [address] [id number] [place] [address]- 4772 Jan, [facility] [place] [facility] [address] [id number] [place] [address]- 0682 Oct, [facility] [place] [facility] [address] [id number] [place] [address]- 8544 Aug, [facility] [place] [facility] [address] [id number] [place] [address]- 5835 Jul, [facility] [place] [facility] [address] [id number] [place] [address]- 9671 Jul, [facility] [place] [facility] [address] [id number] [place] [address]- 7420 Aug, [facility] [place] [facility] [address] [id number] [place] [address]- 7295 May, [facility] [place] [facility] [address] [id number] [place] [address]- 2666 Feb, [facility] [place] [facility] [address] [id number] [place] [address]- 5846 Feb, [facility] [place] [facility] [address] [id number] [place] [address]- 0191 Feb, [facility] [address] [facility] [id number] [place] [address]- 1769 Nov, [facility] [address] [facility] [id number] [address]- 6299 June, IMMUNIZATIONS No Known Immunizations SOCIAL HISTORY Never Assessed REASON FOR VISIT flu symptoms Pt c/o cough and body aches since yesterday, states her boyfriend is positive for flu SINDHU Powell PLAN OF CARE Activity Details Follow Up prn Reason: VITAL SIGNS Height 68 in 2017-02-22 Weight 238.6 lbs 2017-02-22 Temperature 99.5 degrees Fahrenheit 2017-02-22 Heart Rate 100 bpm 2017-02-22 Respiratory Rate 20 2017-02-22 BMI 36.28 kg/m2 2017-02-22 Blood pressure systolic 132 mmHg 2017-02-22 Blood pressure diastolic 80 mmHg 2017-02-22 MEDICATIONS Medication Instructions Dosage Frequency Start Date End Date Duration Status Robitussin Chest Congestion 100 MG/5ML Orally every 4 hrs 10 ml as needed 4h Feb, Not-Taking Flintstones Plus Iron 1 Orally Once a day 2 tablet 24h Feb, 30 day(s) Not-Taking Mononessa 0.25-35 MG-MCG Orally Once a day 1 tablet 24h Jan, 28 day(s) Active RESULTS Name Result Date Reference Range INFLUENZA A & B (IN HOUSE) 2017-02-22 INFLUENZA A negative INFLUENZA B positive Control + Lot # [id number] Exp date 2019-05-31 PROCEDURES Procedure Date Ordered Result Body Site INFLUENZA ASSAY W/OPTIC Feb 22, 2017 INSTRUCTIONS MEDICATIONS ADMINISTERED No Known Medications MEDICAL (GENERAL) HISTORY Type Description Date Hospitalization History Pregnancies x 3 2017
--- OUTSIDE RECORDS SUMMARY | 2018-02-26 06:20 | XMS REPORT ---
Author Author SREEDHAR Sutherland Organization [facility] Address [address] [place] [address] Care Team Providers Care Asic Engineer Name Role Phone SREEDHAR Sutherland Unavailable PROBLEMS Type Condition ICD9-CM Code TTK71-NV Code Onset Dates Condition Status SNOMED Code Problem Surveillance of previously prescribed intrauterine contraceptive device V25.42 Active 120668265910422 Problem examination or test, negative result V72.41 Active 517163141 Problem General counseling for initiation of other contraceptive measures V25.02 Active [id number] Problem Screening for malignant neoplasm of the cervix V76.2 Active 338008787 Problem Unspecified breast screening V76.10 Active 098921364 Problem Unspecified contraceptive management V25.9 Active 564274619 Problem Surveillance of other previously prescribed contraceptive method V25.49 Active 970024984 Problem Irregular bleeding N92.6 Active 40936669 Problem Adjustment disorder with anxious mood F43.22 Active 79226813 Problem Lumbago 724.2 Active 441263839 Problem Cough 786.2 Active 94683340 Problem Constipation, unspecified constipation type K59.00 Active 87214460 Problem Nondependent tobacco use disorder 305.1 Active 635794707 ALLERGIES No Known Allergies ENCOUNTERS Encounter Location Date Diagnosis [facility] [id number] [place] [address] June, Encounter for test, result unknown Z32.00 [facility] [address] [id number] [address] 04 May, 2017 Dysuria R30.0 ; Irregular bleeding N92.6 and Acute cystitis with hematuria N30.01 [facility] [address] [id number] [address] 10 Apr, 2017 Sore throat J02.9 and Strep pharyngitis J02.0 [facility] [id number] [place] [address] Feb, Cough R05 and Influenza B J10.1 [id number] [place] [address] Jan, Encounter for initial prescription of other contraceptives Z30.018 and Encounter for oral contraception initial prescription Z30.011 [facility] [address] [id number] Nov, Dental examination Z01.[address] [address] Sep, Screening for deficiency anemia Z13.[address] [address] Jul, Adjustment disorder with anxious mood F43.[address] [address] Feb, Acute upper respiratory infection, unspecified J06.9 ; Other viral agents as the cause of diseases classified elsewhere B97.89 ; Constipation, unspecified constipation type K59.00 and 10 weeks gestation of Z3A.10 [id number] [place] [address] Jan, Encounter for test Z32.00 [facility] [id number] [place] [address] Jan, Dysuria R30.0 and Acute cystitis with hematuria N30.01 [place] [address] [address] Mar, [address] [address] Feb, Dysuria R30.0 ; Urinary tract infection, site not specified N39.0 and Hematuria, unspecified R31.[address] [address] Nov, UTI (urinary tract infection) N39.0 [facility] [address] [id number] [place] [address] Jul, [facility] [address] [id number] [place] [address] May, [facility] [address] [id number] [place] [address] May, [facility] [address] [id number] [place] [address] Apr, [facility] [address] [id number] [place] [address] Apr, [facility] [address] [id number] [place] [address] Nov, [facility] [address] [id number] [address] Nov, [facility] [address] [id number] [place] [address] Sep, [facility] [address] [id number] [place] [address] Sep, [facility] [address] [id number] [place] [address] Aug, [facility] [address] [id number], [place] [address] Aug, [facility] [address] [id number], [place] [address] Aug, [facility] [address] [id number] [address] Jul, [facility] [address] [id number] [place] [address] June, [facility] [address] [id number] [place] [address] June, [facility] [place] [facility] [address] [id number] [place] [address] Apr, [facility] [place] [facility] [address] [id number] [place] [address] Apr, [facility] [place] [facility] [address] [id number] [place] [address] Apr, [facility] [place] [facility] [address] [id number] [place] [address] Apr, [facility] [place] [facility] [address] [id number] [place] [address] Apr, [facility] [place] [facility] [address] [id number] [place] [address] Jan, [facility] [place] [facility] [address] [id number] [place] [address] Jan, [facility] [place] [facility] [address] [id number] [place] [address] Oct, [facility] [place] [facility] [address] [id number] [place] [address] Aug, [facility] [place] [facility] [address] [id number] [place] [address] Jul, [facility] [place] [facility] [address] [id number] [place] [address] Jul, [facility] [place] [facility] [address] [id number] [place] [address] Aug, [facility] [place] [facility] [address] [id number] [place] [address] May, [facility] [place] [facility] [address] [id number] [place] [address] 118[address] Feb, [facility] [place] [facility] [address] [id number] [place] [address] Feb, [facility] [place] [facility] [address] [id number] [place] [address] Feb, [facility] [address] [facility] [id number] [place] [address] Nov, [facility] [address] [facility] [id number] [address] June, IMMUNIZATIONS No Known Immunizations SOCIAL HISTORY Never Assessed REASON FOR VISIT UTI symptoms with blood spotting but PT has not been conplient with taking them on timeJusta [facility] PLAN OF CARE Activity Details Follow Up prn Reason: VITAL SIGNS Height 68 in 2017-05-17 Weight 256.2 lbs 2017-05-17 Temperature 97.9 degrees Fahrenheit 2017-05-17 Heart Rate 86 bpm 2017-05-17 Respiratory Rate 20 2017-05-17 BMI 38.95 kg/m2 2017-05-17 Blood pressure systolic 122 mmHg 2017-05-17 Blood pressure diastolic 74 mmHg 2017-05-17 MEDICATIONS Medication Instructions Dosage Frequency Start Date End Date Duration Status Macrobid 100 MG Orally every 12 hrs 1 capsule with food 12h 7 day(s) Active Mononessa 0.25-35 MG-MCG Orally Once a day 1 tablet 24h Jan, 28 day(s) Active RESULTS No Results PROCEDURES Procedure Date Ordered Result Body Site URINALYSIS, AUTO, W/O SCOPE May 17, 2017 URINE TEST May 17, 2017 URINE CULTURE/COLONY COUNT May 17, 2017 INSTRUCTIONS MEDICATIONS ADMINISTERED No Known Medications MEDICAL (GENERAL) HISTORY Type Description Date Hospitalization History Pregnancies x 3 2017
--- OUTSIDE RECORDS SUMMARY | 2018-02-26 06:21 | XMS REPORT ---
Author Author KENNRAJNI LY [facility] Address Unknown Care Team Providers Care Shell Worker Name Role Phone LY LAGUERRE Unavailable PROBLEMS Type Condition ICD9-CM Code OLD55-DZ Code Onset Dates Condition Status SNOMED Code Problem Surveillance of previously prescribed intrauterine contraceptive device V25.42 Active 351255797559585 Problem examination or test, negative result V72.41 Active 781167839 Problem General counseling for initiation of other contraceptive measures V25.02 Active 592326495885798 Problem Screening for malignant neoplasm of the cervix V76.2 Active 053457480 Problem Unspecified breast screening V76.10 Active 012347542 Problem Unspecified contraceptive management V25.9 Active 988265270 Problem Surveillance of other previously prescribed contraceptive method V25.49 Active 219003708 Problem Irregular bleeding N92.6 Active 51022163 Problem Adjustment disorder with anxious mood F43.22 Active 98288485 Problem Lumbago 724.2 Active 290174811 Problem Cough 786.2 Active 70660217 Problem Constipation, unspecified constipation type K59.00 Active 94247267 Problem Nondependent tobacco use disorder 305.1 Active 800724764 ALLERGIES No Known Allergies ENCOUNTERS Encounter Location Date Diagnosis [facility] [id number] [place] [address] 04 May, 2017 Dysuria R30.0 ; Irregular bleeding N92.6 and Acute cystitis with hematuria N30.01 [facility] [address] [place] [address] 10 Apr, 2017 Sore throat J02.9 and Strep pharyngitis J02.0 [facility] [id number] [place] [address] Feb, Cough R05 and Influenza B J10.1 [facility] [address] [address] Jan, Encounter for initial prescription of other contraceptives Z30.018 and Encounter for oral contraception initial prescription Z30.011 [facility] [address] [place] [id number] Nov, Dental examination Z01.20 [facility] [address] [place] [address]- [address] Sep, Screening for deficiency anemia Z13.0 [id number] [place] [address]- [address] Jul, Adjustment disorder with anxious mood F43.22 [address] [place] [id number] [place] [address]- 480[address] Feb, Acute upper respiratory infection, unspecified J06.9 ; Other viral agents as the cause of diseases classified elsewhere B97.89 ; Constipation, unspecified constipation type K59.00 and 10 weeks gestation of Z3A.10 [address] [id number] [place] [address]- [address] Jan, Encounter for test Z32.00 [facility] [id number] [place] [address] Jan, Dysuria R30.0 and Acute cystitis with hematuria N30.01 [place] [id number] [place] [address]- 3514 Mar, [facility] [id number] [place] [address]- 67[address] Feb, Dysuria R30.0 ; Urinary tract infection, site not specified N39.0 and Hematuria, unspecified R31.9 [address] [id number] [place] [address]906- 3310 Nov, UTI (urinary tract infection) N39.0 [facility] [id number] [place] [address]990- 2292 Jul, [address] [place] [address] [address] 14 May, 2014 [facility] [place] [facility] [address] [id number] [place] [address] May, [facility] [place] [facility] [address] [id number] [place] [address]- 0191 Apr, [facility] [place] [facility] [address] [id number] [place] [address]- 73[address] Apr, [facility] [place] [facility] [address] [id number] [place] [address]- 5903 Nov, [facility] [place] [facility] [address] [id number] [place] [address]- 9450 Nov, [facility] [place] [facility] [address] [id number] [place] [address]- 8909 Sep, [facility] [place] [facility] [address] [id number] [place] [address]- 7929 Sep, [facility] [place] [facility] [address] [id number] [place] [address]- 5928 Aug, [facility] [place] [facility] [address] [id number] [place] [address]- 6392 Aug, [facility] [place] [facility] [address] [facility] [id number] [place] [address]- 2681 Aug, [facility] [place] [facility] [address] [id number] [place] [address]- 6018 Jul, [facility] [place] [facility] [address] [id number] [place] [address]- 6610 June, [facility] [place] [facility] [address] [id number] [place] [address] June, [facility] [place] [facility] [address] [id number] [place] [address]- 0807 Apr, [facility] [place] [facility] [address] [id number] [place] [address]- 1642 Apr, [facility] [place] [facility] [address] [id number] [place] [address]- 4826 Apr, [facility] [address] [id number] [place] [address]- 7264 Apr, [facility] [place] [facility] [address] [id number] [place] [address]- 3482 Apr, [facility] [address] [id number] [place] [address]- 6710 Jan, [facility] [place] [facility] [address] [id number] [place] [address]- 7428 Jan, [facility] [place] [facility] [address] [id number] [place] [address]- 0377 Oct, [facility] [place] [facility] [address] [id number] [place] [address]- 2416 Aug, [facility] [place] [facility] [address] [id number] [place] [address]- 9389 Jul, [facility] [address] [id number] [place] [address]- 6320 Jul, [facility] [place] [facility] [address] [id number] [place] [address]- 4136 Aug, [facility] [address] [id number] [place] [address]- 3932 May, [facility] [place] [facility] [address] [id number] [place] [address]- 8573 Feb, [facility] [place] [facility] [address] [id number] [place] [address]- 2133 Feb, [facility] [place] [facility] [address] [id number] [place] [address]- 3873 Feb, [facility] [place] [facility] [address] [id number] [place] [address]- 7306 Nov, [facility] [place] [facility] [address] [id number] [place] [address]- 2913 June, IMMUNIZATIONS No Known Immunizations SOCIAL HISTORY Never Assessed REASON FOR VISIT ashley PLAN OF CARE Activity Details Follow Up prn Reason:TOM VITAL SIGNS Height 68 in 2016-12-13 Blood pressure systolic 135 mmHg 2016-12-13 Blood pressure diastolic 89 mmHg 2016-12-13 MEDICATIONS Unknown Medications RESULTS No Results PROCEDURES Procedure Date Ordered Result Body Site LTD ORAL EVALUATION - PROBLEM FOCUS Dec 13, 2016 INTRAORL-PERIAPICAL 1 FILM 30511 Dec 13, 2016 BITEWING - SINGLE FILM Dec 13, 2016 INTRAORL-PERIAPICAL EA ADD FILM Dec 13, 2016 INSTRUCTIONS MEDICATIONS ADMINISTERED No Known Medications MEDICAL (GENERAL) HISTORY Type Description Date Hospitalization History Pregnancies x 3 2016
--- OUTSIDE RECORDS SUMMARY | 2018-02-26 06:21 | XMS REPORT ---
Author Author AILYN TEAGUE [facility] Address [address] [place] [address] Care Team Providers Care Cloth Grader Supervisor Name Role Phone AILYN TEAGUE Unavailable PROBLEMS Type Condition ICD9-CM Code LVN89-JQ Code Onset Dates Condition Status SNOMED Code Problem General counseling for initiation of other contraceptive measures V25.02 Active 282898170311281 Problem Screening for malignant neoplasm of the cervix V76.2 Active 750138541 Problem examination or test, negative result V72.41 Active 053589279 Problem Lumbago 724.2 Active 029851444 Problem Surveillance of other previously prescribed contraceptive method V25.49 Active 479664840 Problem Constipation, unspecified constipation type K59.00 Active 94254013 Problem Surveillance of previously prescribed intrauterine contraceptive device V25.42 Active 425157536254007 Problem Unspecified contraceptive management V25.9 Active 725033450 Problem Unspecified breast screening V76.10 Active 570438737 Problem Cough 786.2 Active 95622896 Problem Nondependent tobacco use disorder 305.1 Active 101645775 ALLERGIES Unknown Allergies SOCIAL HISTORY No smoking Hx information available PLAN OF CARE VITAL SIGNS MEDICATIONS Unknown Medications RESULTS Name Result Date Reference Range TEST, URINE (IN HOUSE) 2016-02-04 RESULTS POSITIVE Lot # [id number] Control + Exp date PROCEDURES Procedure Date Ordered Related Diagnosis Body Site URINE TEST Feb 04, 2016 IMMUNIZATIONS No Known Immunizations
--- OUTSIDE RECORDS SUMMARY | 2018-02-26 06:21 | XMS REPORT ---
Author Author RHYS STUART [facility] Address [address] [place] [address] Care Team Providers Care General Surgery Physician Assistant Name Role Phone PAXTON STUARTNETTE Unavailable PROBLEMS Type Condition ICD9-CM Code XED50-QR Code Onset Dates Condition Status SNOMED Code Problem Unspecified contraceptive management V25.9 Active 171871792 Problem Surveillance of previously prescribed intrauterine contraceptive device V25.42 Active 630971733960857 Problem Surveillance of other previously prescribed contraceptive method V25.49 Active 203898424 Problem Screening for malignant neoplasm of the cervix V76.2 Active 801392043 Problem Unspecified breast screening V76.10 Active 036181243 Problem Constipation, unspecified constipation type K59.00 Active 82122401 Problem Nondependent tobacco use disorder 305.1 Active 482201937 Problem examination or test, negative result V72.41 Active 245507332 Problem General counseling for initiation of other contraceptive measures V25.02 Active 639522108427565 Problem Lumbago 724.2 Active 375845945 Problem Cough 786.2 Active 67539418 ALLERGIES Substance Reaction Event Type Date Status N.K.D.A. Unknown Non Drug Allergy Feb, Unknown SOCIAL HISTORY No smoking Hx information available PLAN OF CARE Activity Details Follow Up 2 - 3 Days, prn Reason: VITAL SIGNS Height 68 in 2016-03-11 Weight 202.7 lbs 2016-03-11 Temperature 98.5 degrees Fahrenheit 2016-03-11 Heart Rate 104 bpm 2016-03-11 Respiratory Rate 24 2016-03-11 Oximetry 98 % 2016-03-11 BMI 30.82 kg/m2 2016-03-11 Blood pressure systolic 101 mmHg 2016-03-11 Blood pressure diastolic 67 mmHg 2016-03-11 MEDICATIONS Medication Instructions Dosage Frequency Start Date End Date Duration Status Robitussin Chest Congestion 100 MG/5ML Orally every 4 hrs 10 ml as needed 4h Feb, Active [place] Plus Iron 1 Orally Once a day 2 tablet 24h Feb, 30 day(s) Active Senna 8.6 MG Orally Once a day 2 tablets at bedtime as needed 24h Feb, Mar, 30 day(s) Active RESULTS No Results PROCEDURES Procedure Date Ordered Related Diagnosis Body Site MEASURE BLOOD OXYGEN LEVEL Mar 11, 2016 Office Visit, Est Pt., Level 3 Mar 11, 2016 IMMUNIZATIONS No Known Immunizations
--- OUTSIDE RECORDS SUMMARY | 2018-02-26 06:21 | XMS REPORT ---
Author Author AYSHASANDROJUAN PABLO Organization [facility] Address [address] [place] [address] Care Team Providers Care Manager Club Name Role Phone OLMSTEADSANDRO AzevedoELE Unavailable PROBLEMS Type Condition ICD9-CM Code GBU59-NP Code Onset Dates Condition Status SNOMED Code Problem Surveillance of previously prescribed intrauterine contraceptive device V25.42 Active 580544684077697 Problem examination or test, negative result V72.41 Active 443027243 Problem General counseling for initiation of other contraceptive measures V25.02 Active [id number] Problem Screening for malignant neoplasm of the cervix V76.2 Active 919116356 Problem Unspecified breast screening V76.10 Active 533154672 Problem Unspecified contraceptive management V25.9 Active 278870689 Problem Surveillance of other previously prescribed contraceptive method V25.49 Active 638379852 Problem Irregular bleeding N92.6 Active 57980181 Problem Adjustment disorder with anxious mood F43.22 Active 19188287 Problem Lumbago 724.2 Active 604334601 Problem Cough 786.2 Active 99836755 Problem Constipation, unspecified constipation type K59.00 Active 50472656 Problem Nondependent tobacco use disorder 305.1 Active 396247216 ALLERGIES No Known Allergies ENCOUNTERS Encounter Location Date Diagnosis [facility] [id number] [place] [address] June, Encounter for test, result unknown Z32.00 [facility] [address], [place] [address] May, 2017 Dysuria R30.0 ; Irregular bleeding N92.6 and Acute cystitis with hematuria N30.01 [facility] [id number] [address] Apr, Sore throat J02.9 and Strep pharyngitis J02.0 [facility] [id number] [place] [address] Feb, Cough R05 and Influenza B J10.[address] [address] Jan, Encounter for initial prescription of other contraceptives Z30.018 and Encounter for oral contraception initial prescription Z30.011 [facility] [address] [id number] Nov, Dental examination Z01.[address] [address] Sep, Screening for deficiency anemia Z13.[address] [address] Jul, Adjustment disorder with anxious mood F43.[address] [address] Feb, Acute upper respiratory infection, unspecified J06.9 ; Other viral agents as the cause of diseases classified elsewhere B97.89 ; Constipation, unspecified constipation type K59.00 and 10 weeks gestation of Z3A.10 [id number] [place] [address] Jan, Encounter for test Z32.00 [facility] [address] [place] [id number] [place] [address] Jan, Dysuria R30.0 and Acute cystitis with hematuria N30.01 [place] [id number] [place] [address] Mar, [address] [address] Feb, Dysuria R30.0 ; Urinary tract infection, site not specified N39.0 and Hematuria, unspecified R31.9 [id number] [place] [address] 19 Oct, 2015 UTI (urinary tract infection) N39.0 [facility] [address] [id number] [place] [address] Jul, [facility] [address] [id number] [place] [address] May, [facility] [address] [id number] [place] [address] May, [facility] [address] [id number] [place] [address] Apr, [facility] [address] [id number] [place] [address] Apr, [facility] [address] [id number] [place] [address] Nov, [facility] [address] [id number] [place] [address] Nov, [facility] [address] [id number] [address] Sep, [facility] [place] [facility] [address] [id number] [place] [address] Sep, [facility] [address] [id number] [address] Aug, [facility] [place] [facility] [address] [id number] [address] Aug, [facility] [place] [facility] [address] [id number], [place] [address] Aug, [facility] [place] [facility] [address] [id number] [place] [address] Jul, [facility] [place] [facility] [address] [id number], [place] [address] June, [facility] [place] [facility] [address] [id number] [place] [address] June, [facility] [place] [facility] [address] [id number] [place] [address] Apr, [facility] [address] [id number] [place] [address] Apr, [facility] [place] [facility] [address] [id number] [place] [address] Apr, [facility] [address] [id number] [place] [address] Apr, [facility] [place] [facility] [address] [id number] [place] [address] Apr, [facility] [place] [facility] [address] [id number] [place] [address] Jan, [facility] [place] [facility] [address] [id number] [place] [address] Jan, [facility] [address] [id number] [place] [address] Oct, [facility] [place] [facility] [address] [id number] [place] [address] Aug, [facility] [place] [facility] [address] [id number] [place] [address] Jul, [facility] [place] [facility] [address] [id number] [place] [address] Jul, [facility] [place] [facility] [address] [id number] [place] [address] Aug, [facility] [place] [facility] [address] [id number] [place] [address] May, [facility] [place] [facility] [address] [id number] [place] [address] Feb, [facility] [place] [facility] [address] [id number] [place] [address] Feb, [facility] [place] [facility] [address] [id number] [place] [address] Feb, [facility] [address] [facility] [id number] [address] Nov, [facility] [address] [facility] [id number] [address] June, IMMUNIZATIONS No Known Immunizations SOCIAL HISTORY Never Assessed REASON FOR VISIT control consult- last pap done for OB intake Arnaldo MANLEY PLAN OF CARE Activity Details Follow Up 3 Months, prn Reason:est care VITAL SIGNS Height 68 in 2017-02-03 Weight 239 lbs 2017-02-03 Temperature 99.7 degrees Fahrenheit 2017-02-03 Heart Rate 88 bpm 2017-02-03 Respiratory Rate 20 2017-02-03 BMI 36.34 kg/m2 2017-02-03 Blood pressure systolic 130 mmHg 2017-02-03 Blood pressure diastolic 78 mmHg 2017-02-03 MEDICATIONS Medication Instructions Dosage Frequency Start Date End Date Duration Status Flintstones Plus Iron 1 Orally Once a day 2 tablet 24h Feb, 30 day(s) Not-Taking Robitussin Chest Congestion 100 MG/5ML Orally every 4 hrs 10 ml as needed 4h Feb, Not-Taking Mononessa 0.25-35 MG-MCG Orally Once a day 1 tablet 24h Jan, 28 day(s) Active RESULTS Name Result Date Reference Range TEST, URINE (IN HOUSE) 2017-02-03 RESULTS negative Lot # [id number] Control + Exp date 05/13/18 PROCEDURES Procedure Date Ordered Result Body Site URINE TEST Feb 03, 2017 INSTRUCTIONS MEDICATIONS ADMINISTERED No Known Medications MEDICAL (GENERAL) HISTORY Type Description Date Hospitalization History Pregnancies x 3 2017
--- OUTSIDE RECORDS SUMMARY | 2018-02-26 06:22 | XMS REPORT | Continuity of Care Document ---
Author Author [facility] of [facility] of [facility] Address Unknown Phone Unavailable Allergies Active Description Code Type Severity Reaction Onset Reported/Identified Relationship to Patient Clinical Status Yes No Known Drug Allergies [id number] Drug Allergy Mild N/A 08/07/2008 Medications There is no data. Problems Date Dx Coded Attending Type Code Diagnosis Diagnosed By 06/23/2009 599.0 URINARY TRACT INFECTION 06/23/2009 623.5 LEUKORRHEA, NOT SPECIFIED INFECTIVE 06/23/2009 599.0 URINARY TRACT INFECTION 06/23/2009 623.5 LEUKORRHEA, NOT SPECIFIED INFECTIVE 06/23/2009 ZAHIDA DOTOMASA K 599.0 URINARY TRACT INFECTION 06/23/2009 TOMAS TEAGUE DOA K 623.5 LEUKORRHEA, NOT SPECIFIED INFECTIVE 06/23/2009 DAVID RN ORTHOPEDIC, ESTEPHANIA A 599.0 URINARY TRACT INFECTION 06/23/2009 DAVID RN ORTHOPEDIC, ESTEPHANIA A 623.5 LEUKORRHEA, NOT SPECIFIED INFECTIVE 06/23/2009 TOMAS TEAGUE DOA K 599.0 URINARY TRACT INFECTION 06/23/2009 TEAGUE DO AILYN K 623.5 LEUKORRHEA, NOT SPECIFIED INFECTIVE 06/23/2009 DAVID RN ORTHOPEDIC, ESTEPHANIA A 599.0 URINARY TRACT INFECTION 06/23/2009 DAVID RN ORTHOPEDIC, ESTEPHANIA A 623.5 LEUKORRHEA, NOT SPECIFIED INFECTIVE 06/23/2009 CHOE RN ORTHOPEDIC, CLARK R 599.0 URINARY TRACT INFECTION 06/23/2009 CHOE RN ORTHOPEDIC, CLARK R 623.5 LEUKORRHEA, NOT SPECIFIED INFECTIVE 06/23/2009 CHOE RN ORTHOPEDIC, CLARK R 599.0 URINARY TRACT INFECTION 06/23/2009 CHOE RN ORTHOPEDIC, CLARK R 623.5 LEUKORRHEA, NOT SPECIFIED INFECTIVE 06/23/2009 CHOE RN ORTHOPEDIC, CLARK R 599.0 URINARY TRACT INFECTION 06/23/2009 CHOE RN ORTHOPEDIC, CLARK R 623.5 LEUKORRHEA, NOT SPECIFIED INFECTIVE 06/23/2009 DAVIDALEXEY Anderson APRNIDI A 599.0 URINARY TRACT INFECTION 06/23/2009 DAVIDALEXEY Anderson APRNIDI A 623.5 LEUKORRHEA, NOT SPECIFIED INFECTIVE 10/22/2009 616.10 VAGINITIS AND VULVOVAGINITIS, UNSPECIFIED 10/22/2009 V69.2 HIGH-RISK SEXUAL BEHAVIOR 10/22/2009 616.10 VAGINITIS AND VULVOVAGINITIS, UNSPECIFIED 10/22/2009 V69.2 HIGH-RISK SEXUAL BEHAVIOR 10/22/2009 TOMAS TEAGUE DOA K 616.10 VAGINITIS AND VULVOVAGINITIS, UNSPECIFIED 10/22/2009 TEAGUE TOMAS CLAUDIOA K V69.2 HIGH-RISK SEXUAL BEHAVIOR 10/22/2009 DAVIDESTEPHANIA CALVIN APRN A 616.10 VAGINITIS AND VULVOVAGINITIS, UNSPECIFIED 10/22/2009 ALEXEY HERNANDEZ APRNIDI A V69.2 HIGH-RISK SEXUAL BEHAVIOR 10/22/2009 TOMAS TEAGUE DOA K 616.10 VAGINITIS AND VULVOVAGINITIS, UNSPECIFIED 10/22/2009 TOMAS TEAGUE DOA K V69.2 HIGH-RISK SEXUAL BEHAVIOR 10/22/2009 DAVIDALEXEY CALVIN APRNIDI A 616.10 VAGINITIS AND VULVOVAGINITIS, UNSPECIFIED 10/22/2009 ALEXEY HERNANDEZ APRNIDI A V69.2 HIGH-RISK SEXUAL BEHAVIOR 10/22/2009 ДМИТРИЙ HERNANDEZ CLARK R 616.10 VAGINITIS AND VULVOVAGINITIS, UNSPECIFIED 10/22/2009 ДМИТРИЙ HERNANDEZ CLARK R V69.2 HIGH-RISK SEXUAL BEHAVIOR 10/22/2009 CHOE RN ORTHOPEDIC CLARK R 616.10 VAGINITIS AND VULVOVAGINITIS, UNSPECIFIED 10/22/2009 CHOE RN ORTHOPEDIC, CLARK R V69.2 HIGH-RISK SEXUAL BEHAVIOR 10/22/2009 ДМИТРИЙ RN ORTHOPEDIC, CLARK R 616.10 VAGINITIS AND VULVOVAGINITIS, UNSPECIFIED 10/22/2009 ДМИТРИЙ RN ORTHOPEDIC, CLARK R V69.2 HIGH-RISK SEXUAL BEHAVIOR 10/22/2009 DAVID HERNANDEZ ESTEPHANIA A 616.10 VAGINITIS AND VULVOVAGINITIS, UNSPECIFIED 10/22/2009 ALEXEY HERNANDEZ APRNIDI A V69.2 HIGH-RISK SEXUAL BEHAVIOR 11/20/2009 634.92 COMPLETE (SAB) 11/20/2009 788.1 DYSURIA 11/20/2009 V25.40 CONTRACEPTIVE SURVEILLANCE UNSPECIFIED 11/20/2009 634.92 COMPLETE (SAB) 11/20/2009 788.1 DYSURIA 11/20/2009 V25.40 CONTRACEPTIVE SURVEILLANCE UNSPECIFIED 11/20/2009 TEAGUE DO, AILYN K 634.92 COMPLETE (SAB) 11/20/2009 TEAGUE DO, AILYN K 788.1 DYSURIA 11/20/2009 TEAGUE DO, IALYN K V25.40 CONTRACEPTIVE SURVEILLANCE UNSPECIFIED 11/20/2009 DAVID DONOHUEJustin ESTEPHANIA A 634.92 COMPLETE (SAB) 11/20/2009 DAVID DONOHUEJustin ESTEPHANIA A 788.1 DYSURIA 11/20/2009 DAVID DONOHUEuJstin ESTEPHANIA A V25.40 CONTRACEPTIVE SURVEILLANCE UNSPECIFIED 11/20/2009 TEAGUE DO, AILYN K 634.92 COMPLETE (SAB) 11/20/2009 TEAGUE DO, AILYN K 788.1 DYSURIA 11/20/2009 TEAGUE DO, AILYN K V25.40 CONTRACEPTIVE SURVEILLANCE UNSPECIFIED 11/20/2009 DAVID RN ORTHOPEDIC, ESTEPHANIA A 634.92 COMPLETE (SAB) 11/20/2009 DAVID DONOHUEJustin ESTEPHANIA A 788.1 DYSURIA 11/20/2009 DAVID DONOHUEN ESTEPHANIA A V25.40 CONTRACEPTIVE SURVEILLANCE UNSPECIFIED 11/20/2009 ДМИТРИЙ HERNANDEZ CLARK R 634.92 COMPLETE (SAB) 11/20/2009 CHOE RN ORTHOPEDIC, CLARK R 788.1 DYSURIA 11/20/2009 CHOE RN ORTHOPEDIC, CLARK R V25.40 CONTRACEPTIVE SURVEILLANCE UNSPECIFIED 11/20/2009 CHOE MARY, CLARK R 634.92 COMPLETE (SAB) 11/20/2009 CHOE RN ORTHOPEDIC, CLARK R 788.1 DYSURIA 11/20/2009 CHOE RN ORTHOPEDIC, CLARK R V25.40 CONTRACEPTIVE SURVEILLANCE UNSPECIFIED 11/20/2009 ДМИТРИЙ HERNANDEZ CLARK R 634.92 COMPLETE (SAB) 11/20/2009 DUGLAS CHOE APRNIA R 788.1 DYSURIA 11/20/2009 ДМИТРИЙ DONOHUEAMA AndersonCLARK R V25.40 CONTRACEPTIVE SURVEILLANCE UNSPECIFIED 11/20/2009 ESTEPHANIA HERNANDEZ APRN A 634.92 COMPLETE (SAB) 11/20/2009 ALEXEY HERNANDEZ APRNIDI A 788.1 DYSURIA 11/20/2009 ALEXEY HERNANDEZ APRNIDI A V25.40 CONTRACEPTIVE SURVEILLANCE UNSPECIFIED 03/04/2010 633.00 ABDOMINAL WITHOUT INTRAUTERINE 03/04/2010 V72.42 TEST POSITIVE RESULT 03/04/2010 633.00 ABDOMINAL WITHOUT INTRAUTERINE 03/04/2010 V72.42 TEST POSITIVE RESULT 03/04/2010 TEAGUE DO, AILYN K 633.00 ABDOMINAL WITHOUT INTRAUTERINE 03/04/2010 TEAGUE DO, AILYN K V72.42 TEST POSITIVE RESULT 03/04/2010 DAVID DONOHUENALEXEYESTEPHANIA A 633.00 ABDOMINAL WITHOUT INTRAUTERINE 03/04/2010 DAVID DONOHUENALEXEYESTEPHANIA A V72.42 TEST POSITIVE RESULT 03/04/2010 TEAGUE DO, AILYN K 633.00 ABDOMINAL WITHOUT INTRAUTERINE 03/04/2010 TEAGUE DO, AILYN K V72.42 TEST POSITIVE RESULT 03/04/2010 DAVID DONOHUENALEXEYESTEPHANIA A 633.00 ABDOMINAL WITHOUT INTRAUTERINE 03/04/2010 DAVID DONOHUENALEXEYESTEPHANIA A V72.42 TEST POSITIVE RESULT 03/04/2010 AMA CHOE APRNRICIA R 633.00 ABDOMINAL WITHOUT INTRAUTERINE 03/04/2010 ДМИТРИЙ HERNANDEZ CLARK R V72.42 TEST POSITIVE RESULT 03/04/2010 AMA CHOE APRNRICIA R 633.00 ABDOMINAL WITHOUT INTRAUTERINE 03/04/2010 ДМИТРИЙ HERNANDEZ CLARK R V72.42 TEST POSITIVE RESULT 03/04/2010 ДМИТРИЙ HERNANDEZ CLARK R 633.00 ABDOMINAL WITHOUT INTRAUTERINE 03/04/2010 ДМИТРИЙ HERNANDEZ CLARK R V72.42 TEST POSITIVE RESULT 03/04/2010 DAVID DONOHUENALEXEYESTEPHANIA A 633.00 ABDOMINAL WITHOUT INTRAUTERINE 03/04/2010 DAVID DONOHUENALEXEYESTEPHANIA A V72.42 TEST POSITIVE RESULT 04/08/2010 132.0 PEDICULUS CAPITIS (HEAD LOUSE) 04/08/2010 132.0 PEDICULUS CAPITIS (HEAD LOUSE) 04/08/2010 AILYN TEAGUE DO 132.0 PEDICULUS CAPITIS (HEAD LOUSE) 04/08/2010 ESTEPHANIA HERNANDEZ APRN A 132.0 PEDICULUS CAPITIS (HEAD LOUSE) 04/08/2010 AILYN TEAGUE DO 132.0 PEDICULUS CAPITIS (HEAD LOUSE) 04/08/2010 ESTEPHANIA HERNANDEZ APRN A 132.0 PEDICULUS CAPITIS (HEAD LOUSE) 04/08/2010 AMA CHOE APRNRICIA R 132.0 PEDICULUS CAPITIS (HEAD LOUSE) 04/08/2010 ДМИТРИЙ HERNANDEZ CLARK R 132.0 PEDICULUS CAPITIS (HEAD LOUSE) 04/08/2010 AMA CHOE APRNRICIA R 132.0 PEDICULUS CAPITIS (HEAD LOUSE) 04/08/2010 ESTEPHANIA HERNANDEZ APRN A 132.0 PEDICULUS CAPITIS (HEAD LOUSE) 10/21/2010 Ot 644.13 THREAT LABOR NEC-ANTEPAR 10/23/2010 Ot 285.9 ANEMIA NOS 10/23/2010 Ot 648.21 ANEMIA- DELIVERED 10/23/2010 Ot 661.31 PRECIPITATE LABOR-DELIV 10/23/2010 Ot 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.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 NEC-DELIV 10/23/2010 Ot V06.1 DIPHTHERIA- TETANUS-PERTUSSIS, COMBINED [ 10/23/2010 Ot V06.4 VAC-MEASLE- MUMPS-RUBELLA 10/23/2010 Ot V27.0 DELIVER- SINGLE LIVEBORN 03/10/2011 V25.02 CONTRACEPTION - ANY METHOD 03/10/2011 V25.49 CONTRACEPTION SURVEILLANCE (REPEAT RX) 03/10/2011 V72.41 TEST NEGATIVE RESULT 03/10/2011 V25.02 CONTRACEPTION - ANY METHOD 03/10/2011 V25.49 CONTRACEPTION SURVEILLANCE (REPEAT RX) 03/10/2011 V72.41 TEST NEGATIVE RESULT 03/10/2011 AILYN TEAGUE DO V25.02 CONTRACEPTION - ANY METHOD 03/10/2011 AILYN TEAGUE DO V25.49 CONTRACEPTION SURVEILLANCE (REPEAT RX) 03/10/2011 AILYN TEAGUE DO V72.41 TEST NEGATIVE RESULT 03/10/2011 DAVID RN ORTHOPEDIC, ESTEPHANIA A V25.02 CONTRACEPTION - ANY METHOD 03/10/2011 DAVIDESTEPHANIA Anderson APRN A V25.49 CONTRACEPTION SURVEILLANCE (REPEAT RX) 03/10/2011 DAVID DONOHUEESTEPHANIA Anderson A V72.41 TEST NEGATIVE RESULT 03/10/2011 AILYN TEAGUE DO V25.02 CONTRACEPTION - ANY METHOD 03/10/2011 AILYN TEAGUE DO V25.49 CONTRACEPTION SURVEILLANCE (REPEAT RX) 03/10/2011 AILYN TEAGUE DO V72.41 TEST NEGATIVE RESULT 03/10/2011 DAVID DONOHUEESTEPHANIA Anderson A V25.02 CONTRACEPTION - ANY METHOD 03/10/2011 DAVID DONOHUEESTEPHANIA Anderson A V25.49 CONTRACEPTION SURVEILLANCE (REPEAT RX) 03/10/2011 DAVIDESTEPHANIA Anderson APRN A V72.41 TEST NEGATIVE RESULT 03/10/2011 CLARK CHOE APRN R V25.02 CONTRACEPTION - ANY METHOD 03/10/2011 CLARK CHOE APRN R V25.49 CONTRACEPTION SURVEILLANCE (REPEAT RX) 03/10/2011 CLARK CHOE APRN R V72.41 TEST NEGATIVE RESULT 03/10/2011 DUGLAS CHOE APRNIA R V25.02 CONTRACEPTION - ANY METHOD 03/10/2011 DUGLAS CHOE APRNIA R V25.49 CONTRACEPTION SURVEILLANCE (REPEAT RX) 03/10/2011 CLARK CHOE APRN R V72.41 TEST NEGATIVE RESULT 03/10/2011 CLARK CHOE APRN R V25.02 CONTRACEPTION - ANY METHOD 03/10/2011 CLARK CHOE APRN R V25.49 CONTRACEPTION SURVEILLANCE (REPEAT RX) 03/10/2011 CLARK CHOE APRN R V72.41 TEST NEGATIVE RESULT 03/10/2011 DAVIDESTEPHANIA Anderson APRN A V25.02 CONTRACEPTION - ANY METHOD 03/10/2011 DAVIDESTEPHANIA Anderson APRN A V25.49 CONTRACEPTION SURVEILLANCE (REPEAT RX) 03/10/2011 DAVID RN ORTHOPEDICESTEPHANIA Anderson A V72.41 TEST NEGATIVE RESULT 06/07/2011 V25.9 CONTRACEPTION MANAGEMENT 06/07/2011 V25.9 CONTRACEPTION MANAGEMENT 06/07/2011 AILYN TEAGUE DO V25.9 CONTRACEPTION MANAGEMENT 06/07/2011 DAVID RN ORTHOPEDICESTEPHANIA Anderson A V25.9 CONTRACEPTION MANAGEMENT 06/07/2011 AILYN TEAGUE DO V25.9 CONTRACEPTION MANAGEMENT 06/07/2011 DAVID HERNANDEZ ESTEPHANIA A V25.9 CONTRACEPTION MANAGEMENT 06/07/2011 AMA CHOE APRNRICIA R V25.9 CONTRACEPTION MANAGEMENT 06/07/2011 AMA CHOE APRNRICIA R V25.9 CONTRACEPTION MANAGEMENT 06/07/2011 ДМИТРИЙ HERNANDEZ CLARK R V25.9 CONTRACEPTION MANAGEMENT 06/07/2011 DAVID HERNANDEZ ESTEPHANIA A V25.9 CONTRACEPTION MANAGEMENT 08/07/2012 V76.10 BREAST CANCER SCREENING 08/07/2012 V76.2 CERVICAL CANCER SCREENING (PAP SMEAR) 08/07/2012 V76.10 BREAST CANCER SCREENING 08/07/2012 V76.2 CERVICAL CANCER SCREENING (PAP SMEAR) 08/07/2012 AILYN TEAGUE DO K V76.10 BREAST CANCER SCREENING 08/07/2012 AILYN TEAGUE DO V76.2 CERVICAL CANCER SCREENING (PAP SMEAR) 08/07/2012 DAVID HERNANDEZ ESTEPHANIA A V76.10 BREAST CANCER SCREENING 08/07/2012 ALEXEY HERNANDEZ APRNIDI A V76.2 CERVICAL CANCER SCREENING (PAP SMEAR) 08/07/2012 AILYN TEAGUE DO K V76.10 BREAST CANCER SCREENING 08/07/2012 AILYN TEAGUE DO K V76.2 CERVICAL CANCER SCREENING (PAP SMEAR) 08/07/2012 DAVID HERNANDEZ ESTEPHANIA A V76.10 BREAST CANCER SCREENING 08/07/2012 DAVID HERNANDEZ ESTEPHANIA A V76.2 CERVICAL CANCER SCREENING (PAP SMEAR) 08/07/2012 AMA CHOE APRNRICIA R V76.10 BREAST CANCER SCREENING 08/07/2012 AMA CHOE APRNRICIA R V76.2 CERVICAL CANCER SCREENING (PAP SMEAR) 08/07/2012 ДМИТРИЙ HERNANDEZ CLARK R V76.10 BREAST CANCER SCREENING 08/07/2012 AMA CHOE APRNRICIA R V76.2 CERVICAL CANCER SCREENING (PAP SMEAR) 08/07/2012 ДМИТРИЙ HERNANDEZ CLARK R V76.10 BREAST CANCER SCREENING 08/07/2012 ДМИТРИЙ HERNANDEZ CLARK R V76.2 CERVICAL CANCER SCREENING (PAP SMEAR) 08/07/2012 DAVID HERNANDEZ ESTEPHANIA A V76.10 BREAST CANCER SCREENING 08/07/2012 ESTEPHANIA HERNANDEZ APRN A V76.2 CERVICAL CANCER SCREENING (PAP SMEAR) 10/24/2012 V25.42 CONTRACEPTION SURVEILLANCE (IUD) 10/24/2012 AILYN TEAGUE DO V25.42 CONTRACEPTION SURVEILLANCE (IUD) 10/24/2012 ESTEPHANIA HERNANDEZ APRN A V25.42 CONTRACEPTION SURVEILLANCE (IUD) 10/24/2012 AILYN TEAGUE DO V25.42 CONTRACEPTION SURVEILLANCE (IUD) 10/24/2012 ESTEPHANIA HERNANDEZ APRN A V25.42 CONTRACEPTION SURVEILLANCE (IUD) 10/24/2012 DUGLAS CHOE APRNIA R V25.42 CONTRACEPTION SURVEILLANCE (IUD) 10/24/2012 DUGLAS CHOE APRNIA R V25.42 CONTRACEPTION SURVEILLANCE (IUD) 10/24/2012 DUGLAS CHOE APRNIA R V25.42 CONTRACEPTION SURVEILLANCE (IUD) 10/24/2012 ESTEPHANIA HERNANDEZ APRN A V25.42 CONTRACEPTION SURVEILLANCE (IUD) 07/09/2013 AILYN TEAGUE DO 724.2 LUMBAGO/ LOW BACK PAIN 07/09/2013 ESTEPHANIA HERNANDEZ APRN A 724.2 LUMBAGO/ LOW BACK PAIN 07/09/2013 ДМИТРИЙ HERNANDEZ CLARK R 724.2 LUMBAGO/ LOW BACK PAIN 07/09/2013 AMA CHOE APRNRICIA R 724.2 LUMBAGO/ LOW BACK PAIN 07/09/2013 ДМИТРИЙ HERNANDEZ CLARK R 724.2 LUMBAGO/ LOW BACK PAIN 07/09/2013 ESTEPHANIA HERNANDEZ APRN A 724.2 LUMBAGO/ LOW BACK PAIN 11/27/2013 ДМИТРИЙ HERNANDEZ CLARK R 305.1 TOBACCO ABUSE 11/27/2013 ДМИТРИЙ HERNANDZE CLARK R 786.2 COUGH 11/27/2013 AMA CHOE APRNRICIA R 305.1 TOBACCO ABUSE 11/27/2013 AMA CHOE APRNRICIA R 786.2 COUGH 11/27/2013 ESTEPHANIA HERNANDEZ APRN A 305.1 TOBACCO ABUSE 11/27/2013 ESTEPHANIA HERNANDEZ APRN A 786.2 COUGH 02/22/2016 JOSE MARTIN TRINIDAD, ESE Regalado Ot Z36 ENCOUNTER FOR SCREENING OF MOT 02/22/2016 ESE PHILIPPE MD, Ot Z3A.08 8 WEEKS GESTATION OF 03/25/2016 ESE PHILIPPE MD Ot Z36 ENCOUNTER FOR SCREENING OF MOT 03/25/2016 ESE PHILIPPE MD Ot Z3A.08 8 WEEKS GESTATION OF 04/08/2016 ESE PHILIPPE MD Ot Z36 ENCOUNTER FOR SCREENING OF MOT 04/08/2016 ESE PHILIPPE MD Ot Z3A.08 8 WEEKS GESTATION OF 04/14/2016 ESE PHILIPPE MD Ot Z36 ENCOUNTER FOR SCREENING OF MOT 04/14/2016 ESE PHILIPPE MD, Ot3A.08 8 WEEKS GESTATION OF 05/19/2016 ESE PHILIPPE MD Ot Z34.92 ENCNTR FOR SUPRVSN OF NORMAL PREG, UNSP, 05/26/2016 ESE PHILIPPE MD Ot Z34.92 ENCNTR FOR SUPRVSN OF NORMAL PREG, UNSP, 06/22/2016 ESE PHILIPPE MD Ot Z34.92 ENCNTR FOR SUPRVSN OF NORMAL PREG, UNSP, 06/22/2016 ESE PHILIPPE MD Ot Z3A.25 25 WEEKS GESTATION OF 06/30/2016 ESE PHILIPPE MD Ot Z34.92 ENCNTR FOR SUPRVSN OF NORMAL PREG, UNSP, 06/30/2016 ESE PHILIPPE MD Ot Z3A.25 25 WEEKS GESTATION OF 08/24/2016 ESE PHILIPPE MD Ot O24.419 GESTATIONAL DIABETES MELLITUS IN PREGNAN 08/24/2016 ESE PHILIPPE MD Ot Z3A.34 34 WEEKS GESTATION OF 08/30/2016 ESE PHILIPPE MD Ot O24.419 GESTATIONAL DIABETES MELLITUS IN PREGNAN 08/30/2016 ESE PHILIPPE MD Ot Z3A.34 34 WEEKS GESTATION OF 09/08/2016 ESE PHILIPPE MD Ot O24.419 GESTATIONAL DIABETES MELLITUS IN PREGNAN 09/08/2016 ESE PHILIPPE MD Ot Z3A.34 34 WEEKS GESTATION OF 09/12/2016 ESE PHILIPPE MD Ot O24.419 GESTATIONAL DIABETES MELLITUS IN PREGNAN 09/12/2016 ESE PHILIPPE MD Ot Z3A.34 34 WEEKS GESTATION OF 09/23/2016 ESE PHILIPPE MD, Ot O24.419 GESTATIONAL DIABETES MELLITUS IN PREGNAN 09/23/2016 ESE PHILIPPE MD, Ot Z3A.34 34 WEEKS GESTATION OF 09/24/2016 ESE PHILIPPE MD, Ot O80 ENCOUNTER FOR FULL-TERM UNCOMPLICATED DE 09/24/2016 ESE PHILIPPE MD, Ot Z23 ENCOUNTER FOR IMMUNIZATION 09/24/2016 ESE PHILIPPE MD, Ot Z37.0 SINGLE LIVE 09/24/2016 ESE PHILIPPE MD, Ot Z3A.39 39 WEEKS GESTATION OF 11/12/2016 ESE PHILIPPE MD, Ot O24.419 GESTATIONAL DIABETES MELLITUS IN PREGNAN 11/12/2016 ESE PHILIPPE MD, Ot Z3A.34 34 WEEKS GESTATION OF 04/13/2017 Ot 644.13 THREAT LABOR NEC-ANTEPAR 05/14/2017 Ot 644.13 THREAT LABOR NEC-ANTEPAR 07/18/2017 ESE PHILIPPE MD Ot Z34.92 ENCNTR FOR SUPRVSN OF NORMAL PREG, UNSP, 07/18/2017 ESE PHILIPPE MD Ot Z34.92 ENCNTR FOR SUPRVSN OF NORMAL PREG, UNSP, 07/18/2017 ESE PHILIPPE MD, Ot Z3A.25 25 WEEKS GESTATION OF 07/18/2017 ESE PHILIPPE MD, Ot O24.419 GESTATIONAL DIABETES MELLITUS IN PREGNAN 07/18/2017 ESE PHILIPPE MD, Ot Z3A.34 34 WEEKS GESTATION OF 07/24/2017 ESE PHILIPPE MD Ot Z34.92 ENCNTR FOR SUPRVSN OF NORMAL PREG, UNSP, 07/24/2017 ESE PHILIPPE MD Ot Z34.92 ENCNTR FOR SUPRVSN OF NORMAL PREG, UNSP, 07/24/2017 ESE PHILIPPE MD, Ot Z3A.25 25 WEEKS GESTATION OF 07/24/2017 ESE PHILIPPE MD, Ot O24.419 GESTATIONAL DIABETES MELLITUS IN PREGNAN 07/24/2017 ESE PHILIPPE MD, Ot Z3A.34 34 WEEKS GESTATION OF 07/26/2017 ESE PHILIPPE MD, Ot34.92 ENCNTR FOR SUPRVSN OF NORMAL PREG, UNSP, 07/26/2017 ESE PHILIPPE MD, Ot Z34.92 ENCNTR FOR SUPRVSN OF NORMAL PREG, UNSP, 07/26/2017 ESE PHILIPPE MD Ot Z3A.25 25 WEEKS GESTATION OF 07/26/2017 ESE PHILIPPE MD, Ot O24.419 GESTATIONAL DIABETES MELLITUS IN PREGNAN 07/26/2017 ESE PHILIPPE MD, Ot Z3A.34 34 WEEKS GESTATION OF 08/28/2017 ESE PHILIPPE MD, Ot Z34.91 ENCNTR FOR SUPRVSN OF NORMAL PREG, UNSP, 08/28/2017 ESE PHILIPPE MD Ot Z3A.12 12 WEEKS GESTATION OF 09/05/2017 ESE PHILIPPE MD, Ot Z34.91 ENCNTR FOR SUPRVSN OF NORMAL PREG, UNSP, 09/05/2017 ESE PHILIPPE MD Ot Z3A.12 12 WEEKS GESTATION OF 10/18/2017 ESE PHILIPPE MD, Ot Z34.92 ENCNTR FOR SUPRVSN OF NORMAL PREG, UNSP, 10/18/2017 ESE PHILIPPE MD Ot Z34.92 ENCNTR FOR SUPRVSN OF NORMAL PREG, UNSP, 10/18/2017 ESE PHILIPPE MD, Ot Z3A.25 25 WEEKS GESTATION OF 10/18/2017 ESE PHILIPPE MD, Ot O24.419 GESTATIONAL DIABETES MELLITUS IN PREGNAN 10/18/2017 ESE PHILIPPE MD, Ot Z3A.34 34 WEEKS GESTATION OF 10/18/2017 ESE PHILIPPE MD, Ot Z34.91 ENCNTR FOR SUPRVSN OF NORMAL PREG, UNSP, 10/18/2017 ESE PHILIPPE MD Ot Z3A.12 12 WEEKS GESTATION OF 10/19/2017 ESE PHILIPPE MD, Ot Z36.89 ENCOUNTER FOR OTHER SPECIFIED 10/19/2017 ESE PHILIPPE MD, Ot Z3A.20 20 WEEKS GESTATION OF 10/19/2017 ESE PHILIPPE MD, Ot Z36.89 ENCOUNTER FOR OTHER SPECIFIED 10/19/2017 ESE PHILIPPE MD, Ot Z3A.20 20 WEEKS GESTATION OF 10/31/2017 ESE PHILIPPE MD, Ot Z36.89 ENCOUNTER FOR OTHER SPECIFIED 10/31/2017 ESE PHILIPPE MD, Ot Z3A.20 20 WEEKS GESTATION OF 11/13/2017 Ot 644.13 THREAT LABOR NEC-ANTEPAR 02/13/2018 Ot 644.13 THREAT LABOR NEC-ANTEPAR 02/15/2018 ESE PHILIPPE MD, Ot Z34.92 ENCNTR FOR SUPRVSN OF NORMAL PREG, UNSP, 02/15/2018 ESE PHILIPPE MD, Ot Z34.92 ENCNTR FOR SUPRVSN OF NORMAL PREG, UNSP, 02/15/2018 ESE PHILIPPE MD, Ot Z3A.25 25 WEEKS GESTATION OF 02/15/2018 ESE PHILIPPE MD, Ot O24.419 GESTATIONAL DIABETES MELLITUS IN PREGNAN 02/15/2018 ESE PHILIPPE MD, Ot Z3A.34 34 WEEKS GESTATION OF 02/15/2018 ESE PHILIPPE MD, Ot Z34.91 ENCNTR FOR SUPRVSN OF NORMAL PREG, UNSP, 02/15/2018 ESE PHILIPPE MD, Ot Z3A.12 12 WEEKS GESTATION OF 02/15/2018 ESE PHILIPPE MD, Ot Z36.89 ENCOUNTER FOR OTHER SPECIFIED 02/15/2018 ESE PHILIPPE MD, Ot Z3A.20 20 WEEKS GESTATION OF 02/20/2018 ESE PHILIPPE MD, Ot O47.1 FALSE LABOR AT OR AFTER 37 COMPLETED WEE 02/20/2018 ESE PHILIPPE MD, Ot Z3A.37 37 WEEKS GESTATION OF Procedures Code Description Performed By Performed On 73.6 EPISIOTOMY 10/21/2010 33942 THERAPUTIC INJ SQ/IM 08/07/2012 J1050 DEPO PROVERA 08/07/2012 Q0091 PAP SMEAR OBTAIN SMEAR 08/07/2012 68608 URINE TEST (IN- HOUSE) 08/07/2012 62667 PAP SMEAR 08/10/2012 88007 URINE TEST (IN- HOUSE) 10/24/2012 J1050 DEPO PROVERA 10/24/2012 10168 THERAPUTIC INJ SQ/IM 10/24/2012 82360 URINE TEST (IN- HOUSE) 01/24/2013 40252 THERAPUTIC INJ SQ/IM 01/24/2013 J1050 DEPO PROVERA 01/24/2013 J1050 DEPO PROVERA 05/02/2013 80199 UA W/ CULTURE IF INDICATED 05/02/2013 57389 TEST, URINE (IN- HOUSE) 05/02/2013 68885 THERAPUTIC INJ SQ/IM 05/02/2013 18707 CULTURE URINE 05/05/2013 37187 CULTURE URINE 08/13/2013 58169 UA W/ CULTURE IF INDICATED 08/13/2013 13321 UA W/ CULTURE IF INDICATED 05/05/2014 02242 TEST, URINE (IN- HOUSE) 06/05/2014 J1050 DEPO PROVERA 06/05/2014 15215 THERAPUTIC INJ SQ/IM 06/05/2014 [id number] DRAINAGE OF AMNIOTIC FL, THERAP FROM POC 09/23/2016 [id number] DELIVERY OF PRODUCTS OF CONCEPTION, EXTE 09/23/2016 Results Test Result Range Urine Culture, Routine - 01/18/16 00:00 Urine Culture, Routine Note Please note - 01/18/16 00:00 Please note Comment Complete blood count (CBC) with automated white blood cell (WBC) differential - 09/23/16 06:40 Blood leukocytes automated count (number/volume) 8.5 10*3/uL 4.3-11.0 Blood erythrocytes automated count (number/volume) 4.04 10*6/uL 4.35-5.85 Venous blood hemoglobin measurement (mass/volume) 11.0 g/dL 11.5-16.0 Blood hematocrit (volume fraction) 34 % 35-52 Automated erythrocyte mean corpuscular volume 83 [foz_us] 80-99 Automated erythrocyte mean corpuscular hemoglobin (mass per erythrocyte) 27 pg 25-34 Automated erythrocyte mean corpuscular hemoglobin concentration measurement ( mass/volume) 33 g/dL 32-36 Automated erythrocyte distribution width ratio 13.3 % 10.0-14.5 Automated blood platelet count (count/volume) 165 10*3/uL 130-400 Automated blood platelet mean volume measurement 9.7 [foz_us] 7.4-10.4 Automated blood neutrophils/100 leukocytes 63 % 42-75 Automated blood lymphocytes/100 leukocytes 27 % 12-44 Blood monocytes/100 leukocytes 10 % 0-12 Automated blood eosinophils/100 leukocytes 1 % 0-10 Automated blood basophils/100 leukocytes 0 % 0-10 Blood neutrophils automated count (number/volume) 5.3 10*3 1.8-7.8 Blood lymphocytes automated count (number/volume) 2.3 10*3 1.0-4.0 Blood monocytes automated count (number/volume) 0.8 10*3 0.0-1.0 Automated eosinophil count 0.1 10*3/uL 0.0-0.3 Automated blood basophil count (count/volume) 0.0 10*3/uL 0.0-0.1 Blood type T Indirect antibody screen panel - 09/23/16 06:40 ABO+Rh group BP NRG Transfusion band number [id number] Blood group antibody screen NEGATIVE NRG Complete blood count (CBC) with automated white blood cell (WBC) differential - 09/24/16 06:15 Blood leukocytes automated count (number/volume) 9.5 10*3/uL 4.3-11.0 Blood erythrocytes automated count (number/volume) 3.55 10*6/uL 4.35-5.85 Venous blood hemoglobin measurement (mass/volume) 9.7 g/dL 11.5-16.0 Blood hematocrit (volume fraction) 30 % 35-52 Automated erythrocyte mean corpuscular volume 84 [foz_us] 80-99 Automated erythrocyte mean corpuscular hemoglobin (mass per erythrocyte) 27 pg 25-34 Automated erythrocyte mean corpuscular hemoglobin concentration measurement ( mass/volume) 33 g/dL 32-36 Automated erythrocyte distribution width ratio 13.3 % 10.0-14.5 Automated blood platelet count (count/volume) 145 10*3/uL 130-400 Automated blood platelet mean volume measurement 9.9 [foz_us] 7.4-10.4 Automated blood neutrophils/100 leukocytes 61 % 42-75 Automated blood lymphocytes/100 leukocytes 28 % 12-44 Blood monocytes/100 leukocytes 11 % 0-12 Automated blood eosinophils/100 leukocytes 1 % 0-10 Automated blood basophils/100 leukocytes 0 % 0-10 Blood neutrophils automated count (number/volume) 5.8 10*3 1.8-7.8 Blood lymphocytes automated count (number/volume) 2.7 10*3 1.0-4.0 Blood monocytes automated count (number/volume) 1.0 10*3 0.0-1.0 Automated eosinophil count 0.1 10*3/uL 0.0-0.3 Automated blood basophil count (count/volume) 0.0 10*3/uL 0.0-0.1 CULTURE, URINE - 05/17/17 11:42 CULTURE, URINE, ROUTINE SEE NOTE NRG Encounters ACCT No. Visit Date/Time Discharge Status Pt. Type Provider Facility Loc./Unit Complaint [id number] 06/05/2014 09:41:00 06/05/2014 23:59:59 CLS Outpatient ESTEPHANIA HERNANDEZ APRN [id number] 05/05/2014 12:38:00 05/05/2014 23:59:59 CLS Outpatient CLARK CHOE APRN [id number] 11/27/2013 11:54:00 11/27/2013 23:59:59 CLS Outpatient CLARK CHOE APRN [id number] 09/20/2013 11:57:00 09/20/2013 23:59:59 CLS Outpatient CLARK CHOE APRN [id number] 08/13/2013 08:29:00 08/13/2013 23:59:59 CLS Outpatient ESTEPHANIA HERNANDEZ APRN [id number] 07/09/2013 13:40:00 07/09/2013 23:59:59 CLS Outpatient AILYN TEAGUE DO [id number] 05/02/2013 15:20:00 05/02/2013 23:59:59 CLS Outpatient ESTEPHANIA HERNANDEZ APRN [id number] 01/24/2013 13:59:00 01/24/2013 23:59:59 CLS Outpatient AILYN TEAGUE DO [id number] 10/24/2012 10:02:00 Document Registration [id number] 08/07/2012 11:37:00 Document Registration [id number] 01/20/2016 05:05:00 Document Registration [id number] 02/15/2018 09:15:00 02/15/2018 12:18:00 DIS Outpatient ESE PHILIPPE MD [facility] WSo CONTRACTIONS [id number] 10/18/2017 09:07:00 10/18/2017 23:59:59 CLS Outpatient ESE PHILIPPE MD [facility] RAD SURVEY [id number] 08/22/2017 15:18:00 08/22/2017 23:59:59 CLS Outpatient ESE PHILIPPE MD [facility] RAD DATES [id number] 11/13/2016 00:18:00 11/13/2016 23:59:59 CLS Preadmit ESE PHILIPPE MD [facility] GESTATIONAL DIABETES [id number] 08/23/2016 11:32:00 11/12/2016 00:01:00 DIS Outpatient ESE PHILIPPE MD [facility] GESTATIONAL DIABETES [id number] 09/23/2016 06:06:00 09/24/2016 18:55:00 DIS Inpatient ESE PHILIPPE MD [facility] LDRP INDUCTION [id number] 06/17/2016 10:08:00 06/17/2016 23:59:59 CLS Outpatient ESE PHILIPPE MD [facility] RAD CHECK 4 CHAMBER VIEW, SPINE [id number] 05/04/2016 09:31:00 05/04/2016 23:59:59 CLS Outpatient ESE PHILIPPE MD [facility] RAD SURVEY [id number] 02/19/2016 12:57:00 02/19/2016 23:59:59 CLS Outpatient ESE PHILIPPE MD [facility] RAD DATING [id number] 07/11/2013 18:29:00 07/11/2013 20:09:00 DIS Emergency [id number] 10/21/2010 19:06:00 Document Registration [id number] 10/21/2010 10:12:00 Document Registration [id number] 07/05/2017 09:40:00 07/05/2017 23:59:59 CLS [facility] [id number] 05/17/2017 11:00:00 Document Registration
[2018-02-26] MEDS ORDERED: PREN1TAB79 PO (06:25)
[2018-02-26] MEDS ORDERED: D5 LR IV SOLUTION 1,000 ML IV SCH (06:27)
[2018-02-26] MEDS ORDERED: MEPIVACAINE (CARBOCAINE) 2% 50 ML VIAL INJ PRN (06:30)
[2018-02-26] MEDS ORDERED: MINERAL OIL CONCENTRATE 99.9% 15 ML UDC TOP PRN (06:30)
[2018-02-26 06:49] LABS: BASOPHILS % (AUTO) 0 % (0-10); EOSINOPHILS # (AUTO) 0.1 10^3/uL (0.0-0.3); EOSINOPHILS % (AUTO) 2 % (0-10); HEMATOCRIT 28 % (35-52); HEMOGLOBIN 9.1 G/DL (11.5-16.0); LYMPHOCYTES % (AUTO) 26 % (12-44); MEAN CORPUSCULAR HEMOGLOBIN 25 PG (25-34); MEAN CORPUSCULAR HGB CONC 32 G/DL (32-36); MEAN CORPUSCULAR VOLUME 77 FL (80-99); MEAN PLATELET VOLUME 9.3 FL (7.4-10.4); MONOCYTES # (AUTO) 0.8 X 10^3 (0.0-1.0); MONOCYTES % (AUTO) 10 % (0-12); NEUTROPHILS # (AUTO) 4.8 X 10^3 (1.8-7.8); NEUTROPHILS % (AUTO) 62 % (42-75); PLATELET COUNT 198 10^3/uL (130-400); RED BLOOD COUNT 3.71 10^6/uL (4.35-5.85); RED CELL DISTRIBUTION WIDTH 14.7 % (10.0-14.5); WHITE BLOOD COUNT 7.7 10^3/uL (4.3-11.0)
--- NOTE | 2018-02-26 07:10 | History & Physical-OB ---
OB - Chief Complaint & HPI Date/Time Date of Admission: Date of Admission: Feb 26, 2018 at 06:10 Date seen by a Provider: Feb 26, 2018 Time Seen by a Provider: 07:20 Chief Complaint/History OB-Reason for Admission/Chief: Induction of Labor Hx : 4 Hx Para: 3 Expected Date of Delivery: Mar 05, 2018 Gestational Age in Weeks: 39 Gestational Age in Days: 0 Admission Nurse Assessment Rev: Yes History of Labs GBS negative Allergies and Home Medications Allergies Coded Allergies: No Known Drug Allergies (Unverified , 08/07/08) Home Medications Vit W-Ca,Fe,FA(<1 mg) 1 Each Tablet, 1 EACH PO DAILY, (Reported) Patient Home Medication List Home Medication List Reviewed: Yes OB - History Hx of Present Care: Yes Ultrasounds: Normal mid trimester US Obstetrical Complications: None Medical Complications: None Obstetrical History Hx Termination: No Hx Multiple Gestation: No Hx Stillbirth: No Hx Complication: No Hx Induced Hypertens: No Hx Maternal Gestational Diabet: No Delivery History Hx Dystocia: No Hx Large For Gestational Age I: No Hx Small for Gestational Age I: No Hx Section: No Hx Vaginal Delivery Post C-Sec: No Hx Blood Disorders: No Adverse Rxn to Tranfusion: No Patient Past Medical History no chronic medical problems Social History/Family History HIV/AIDS: No Recent Infectious Disease Expo: No Sexually Transmitted Disease: No Alcohol Use: Denies Use Recreational Drug Use: No Immunizations Hepatitis A: No Hepatitis B: No OB - Admission Exam Physical Exam Vitals: Vital Signs 02/26/18 06:24 Temp 97.0 Pulse 113 Resp 18 B/P (MAP) 120/64 (82) HEENT: Moist Membranes Heart: Rhythm Normal Lungs: Clear Abdomen: Gravid Labs Laboratory Tests Test 02/26/18 06:30 Range/Units White Blood Count 7.7 4.3-11.0 10^3/uL Red Blood Count 3.71 L 4.35-5.85 10^6/uL Hemoglobin 9.1 L 11.5-16.0 G/DL Hematocrit 28 L 35-52 % Mean Corpuscular Volume 77 L 80-99 FL Mean Corpuscular Hemoglobin 25 25-34 PG Mean Corpuscular Hemoglobin Concent 32 32-36 G/DL Red Cell Distribution Width 14.7 H 10.0-14.5 % Platelet Count 198 130-400 10^3/uL Mean Platelet Volume 9.3 7.4-10.4 FL Neutrophils (%) (Auto) 62 42-75 % Lymphocytes (%) (Auto) 26 12-44 % Monocytes (%) (Auto) 10 0-12 % Eosinophils (%) (Auto) 2 0-10 % Basophils (%) (Auto) 0 0-10 % Neutrophils # (Auto) 4.8 1.8-7.8 X 10^3 Lymphocytes # (Auto) 2.0 1.0-4.0 X 10^3 Monocytes # (Auto) 0.8 0.0-1.0 X 10^3 Eosinophils # (Auto) 0.1 0.0-0.3 10^3/uL Basophils # (Auto) 0.0 0.0-0.1 10^3/uL OB - Assessment/Plan/Diagnosis Assessment Assessment: induction of labor Admission Dx 1. IUP at term 39weeks. Admission Status: Inpatient Order (span 2 midnights) Reason for Inpatient Admission: L&D Plan Plan: Induction Induction Method: ESE BURGOS MD Feb 26, 2018 07:10
--- NOTE | 2018-02-26 07:15 | NUR ---
Dr. Quinn at bedside, visualized stip. AROM and SVE per DRHenri Orders received to start pitocin.
[2018-02-26] MEDS ORDERED: OXYTOCIN/NORMAL SALINE 500 ML IV ONE (07:24)
[2018-02-26] MEDS ORDERED: OXYTOCIN/NORMAL SALINE 500 ML IV SCH ×3 (07:24→15:05)
[2018-02-26] MEDS ORDERED: FLU QUADRIvalent (5+ YOA) 2018-2019 (AFLURIA) 0.5 ML IM ONE (07:30)
[2018-02-26] MEDS ORDERED: SUFENTA 0.6MCG/ML BUPIVA 0.125 100 ML ONE (08:16)
[2018-02-26] MEDS ORDERED: LACTATED RINGERS 1,000 ML IV ONE ×2 (08:27)
--- NOTE | 2018-02-26 08:28 | NUR ---
Marsha Hood CRNA here for epidural placement. Procedure explained, consent reviewed and signed by anesthesia. Questions answered to patient's satisfaction. Time out taken to verify correct patient/procedure. 0832 Patient up to side of bed, assisted into sitting position. 0836 Betadine prep done x3 and sterile drape applied. 0840 Local done, see anesthesia record. 0843 Test dose given, see anesthesia record for drug and dosage. Epidural catheter secured in place. Epidural placement complete. 0847 Assisted back into bed, monitors adjusted. Epidural dosed, see anesthesia record. Epidural of Sufenta/Bupvicaine @ 12cc/hr started per pump. Patient tolerated procedure well.
[2018-02-26] MEDS ORDERED: BUPIVACAINE 0.25% 30 ML (SENSORCAINE) VIAL ONE (08:30)
[2018-02-26] MEDS ORDERED: ONDANSETRON 4 MG/2 ML (SDV) Z0FRAN IV PRN (08:30)
[2018-02-26] MEDS ORDERED: LIDOCAINE PF 2% 5 ML (XYLOCAINE) VIAL ONE (08:30)
[2018-02-26] MEDS ORDERED: fentaNYL INJECTION 100 MCG/2 ML AMP ONE (08:30)
[2018-02-26] MEDS ORDERED: EPIDURAL (SUFENTA 0.6MCG/ML BUPIVA 0.125%) 100 ML BAG EPI PRN (08:30)
[2018-02-26] MEDS ORDERED: NALOXONE 0.4 MG/ML 1 ML (NARCAN) VIAL IV PRN (08:30)
[2018-02-26] MEDS ORDERED: CATHETER FLUSH 10 ML SYR IV SCH ×2 (14:00→22:00)
[2018-02-26] MEDS ORDERED: TETANUS,DIPTH,PERTUSS P/F (BOOSTRIX) 0.5 ML VIAL IM ONE (15:15)
[2018-02-26] MEDS ORDERED: WITCH HAZEL(TUCKS) 40 EA JAR TOP PRN (15:15)
[2018-02-26] MEDS ORDERED: BENZOCAINE/MENTHOL (DERMOPLAST) 56 ML CAN TP PRN (15:15)
[2018-02-26] MEDS ORDERED: MEASLES,MUMPS,RUBELLA 1 EA INJ SQ ONE (15:15)
--- NOTE | 2018-02-26 15:42 | OB Labor & Delivery Record ---
L&D History Date of Service Date of Service: Feb 26, 2018 History Expected Date of Delivery: Mar 05, 2018 Gestational Age in Weeks: 39 Hx : 4 Hx Para: 3 Complications Events: Routine care Operative Indications (Cesarea: N/A-Vaginal Delivery Intrapartal Events: None L&D Stage1 Stage One Onset of Labor - Date: Feb 26, 2018 Onset of Labor - Time: 07:15 Monitors and Tracing Monitor Mode: Internal Heart Rate: 130 Monitor Accelerations: Uniform Monitor Decelerations: Variable Station: -1 Jail Variability: Average (6-10) Short Term Variability: Present Presentation: Vertex Vital Signs VS - Last 72 Hours, by Label 02/26/18 02/26/18 02/26/18 02/26/18 06:24 07:35 07:50 08:05 Temp 97.0 97.4 Pulse 113 91 96 87 Resp 18 16 16 16 B/P (MAP) 120/64 (82) 113/70 (84) 96/52 (67) 96/52 (67) O2 Delivery Room Air Room Air Room Air 02/26/18 02/26/18 02/26/18 02/26/18 08:20 08:35 08:42 08:45 Pulse 82 79 83 87 Resp 18 18 18 18 B/P (MAP) 112/81 (91) 116/68 (84) 127/74 (91) 123/71 (88) Pulse Ox 100 100 100 O2 Delivery Room Air Room Air Room Air Room Air 02/26/18 02/26/18 02/26/18 02/26/18 08:51 08:54 08:58 09:05 Temp 98.4 Pulse 88 82 84 75 Resp 18 18 18 18 B/P (MAP) 122/55 (77) 124/57 (79) 121/59 (79) 113/63 (80) Pulse Ox 100 100 100 100 O2 Delivery Room Air Room Air Room Air Room Air 02/26/18 02/26/18 02/26/18 02/26/18 09:08 09:15 09:17 09:23 Pulse 86 88 89 76 Resp 18 18 18 16 B/P (MAP) 115/64 (81) 116/60 (78) 109/58 (75) 117/62 (80) Pulse Ox 100 100 100 98 O2 Delivery Room Air Room Air Room Air Room Air 02/26/18 02/26/18 02/26/18 02/26/18 09:29 09:33 09:39 09:43 Pulse 92 89 69 76 Resp 16 16 16 16 B/P (MAP) 117/56 (76) 122/62 (82) 112/59 (76) 117/60 (79) Pulse Ox 98 98 97 99 O2 Delivery Room Air Room Air Room Air Room Air 02/26/18 02/26/18 02/26/18 02/26/18 09:48 10:05 10:20 10:35 Pulse 77 93 87 74 Resp 16 16 16 16 B/P (MAP) 105/55 (72) 129/61 (83) 129/78 (95) 116/58 (77) Pulse Ox 98 98 98 100 O2 Delivery Room Air Room Air Room Air Room Air 02/26/18 02/26/18 02/26/18 02/26/18 10:50 11:05 11:35 11:50 Pulse 87 94 98 86 Resp 16 16 16 16 B/P (MAP) 105/56 (72) 174/69 (104) 131/71 (91) 139/88 (105) Pulse Ox 100 O2 Delivery Room Air Room Air Room Air Room Air 02/26/18 02/26/18 12:05 12:15 Pulse 99 89 Resp 16 16 B/P (MAP) 135/80 (98) 137/86 (103) O2 Delivery Room Air Room Air Signs of Distress by FHT Signs of Distress no Rupture of Membranes Spontaneous Ruture of Membrane: No Amniotic Membrane Rupture Time: 0715 Amniotic Membrane Fluid Desc.: Clear Induction/Anesthesia Epidural Cath Placement - Time: 42 L&D Stage2 Stage Two Stage II Date: Feb 26, 2018 Stage II Time: 02:17 Monitors and Tracing Monitor Mode: Internal Heart Rate: 130 Monitor Accelerations: Uniform Monitor Decelerations: Early Jail Variability: Average (6-10) Short Term Variability: Present Position: Left Occiput Anterior Presentation: Vertex Signs of Distress by FHT Signs of Distress no Cord Descript/Complications Cord Vessel Description: 3 Vessels Delivery Type Delivery Method: Spontaneous Vaginal Anterior Shoulder: Left Episiotomy/Perineal Laceration Episiotomy Description: None Condition of Infant Delivery 1 minute Comment: 8 5 minute Comment: 9 Condition of Condition of : Living Exam: No Observed Abnormalities Resuscitation Resuscitation: N/A - Spontaneous Resp L&D Stage3 Stage Three Stage III Date: Feb 26, 2018 Stage III Time: 02:21 Pictocin Pitocin Administration mu/min: 14 Pitocin ml/hr: 14 Pitocin Administration Comment: Pitocin increased per protocol. Placenta Delivery Placenta Delivery: Spontaneous Delivery Summary Summary Estimated blood loss (mL): 150 Condition of Delivery Examined: Cervix Examined Post Hemorrhage: No Intervention Required none ESE PHILIPPE MD Feb 26, 2018 15:42
[2018-02-26] MEDS: IBUPROFEN 600 MG (MOTRIN) TAB PO SCH ×2 (16:35→23:00)
--- NOTE | 2018-02-26 17:30 | NUR ---
FFU/2, light rubra lochia noted. Pericare performed, fresh vpad and underwear applied. New gown on. Pt assisted to wheelchair and transferred to room. Pt ambulates to bathroom, voids without difficulty. Pt assisted back to bed. Oriented to room and call light, packet explained. Fresh ice water given.
[2018-02-26] MEDS: HYDROcodone/APAP 5 MG/325 MG (LORTAB) TAB PO PRN (17:44)
[2018-02-27 04:54] VITALS: BP 129/76
[2018-02-27] MEDS: IBUPROFEN 600 MG (MOTRIN) TAB PO SCH ×5 (04:56→23:58)
[2018-02-27 06:47] LABS: BASOPHILS % (AUTO) 0 % (0-10); EOSINOPHILS # (AUTO) 0.1 10^3/uL (0.0-0.3); EOSINOPHILS % (AUTO) 1 % (0-10); HEMATOCRIT 28 % (35-52); HEMOGLOBIN 8.8 G/DL (11.5-16.0); LYMPHOCYTES # (AUTO) 2.3 X 10^3 (1.0-4.0); LYMPHOCYTES % (AUTO) 27 % (12-44); MEAN CORPUSCULAR HEMOGLOBIN 24 PG (25-34); MEAN CORPUSCULAR HGB CONC 31 G/DL (32-36); MEAN CORPUSCULAR VOLUME 78 FL (80-99); MEAN PLATELET VOLUME 9.8 FL (7.4-10.4); MONOCYTES # (AUTO) 0.8 X 10^3 (0.0-1.0); MONOCYTES % (AUTO) 9 % (0-12); NEUTROPHILS # (AUTO) 5.3 X 10^3 (1.8-7.8); NEUTROPHILS % (AUTO) 62 % (42-75); PLATELET COUNT 181 10^3/uL (130-400); RED BLOOD COUNT 3.65 10^6/uL (4.35-5.85); RED CELL DISTRIBUTION WIDTH 14.4 % (10.0-14.5); WHITE BLOOD COUNT 8.6 10^3/uL (4.3-11.0)
--- NOTE | 2018-02-27 07:30 | NUR ---
DR. PHILIPPE IN TO SEE PT.
[2018-02-27] MEDS ORDERED: ACHD5005 PO (07:36)
[2018-02-27] MEDS ORDERED: IBUP-844 PO (07:36)
--- NOTE | 2018-02-27 07:38 | Discharge Inst-Women's Service ---
Discharge Inst-Women's Serv Depart Medication/Instructions New, Converted or Re-Newed RX: RX on Chart Consults/Follow Up Additional Follow Up: Yes (Dr Philippe in 6 weeks.) Activity Activity: Activity as Tolerated Driving Instructions: No Driving for 1 Week Nothing Inside Vagina: No [place] (for 6 weeks.) Return to The Hospital For: as below Symptoms to Report to : Bleeding Excessive, Pain Increased, Fever Over 101 Degrees F, Vaginal Discharge Foul For Any Problems or Questions: Contact Your Physician ESE PHILIPPE MD Feb 27, 2018 07:38
[2018-02-27 08:00] VITALS: BP 119/77
--- NOTE | 2018-02-27 08:21 | Anesthesia-Regional Post-Op ---
Regional Patient Condition Mental Status: Alert, Oriented x3 Circulation: Same as Pre-Op Headache: Absent Sensation: Full Recovery Motor Block: Absent Post Op Complications Complications None Follow Up Care/Instructions Patient Instructions None needed. Anesthesia/Patient Condition Patient is doing well, no complaints, stable vital signs, no apparent adverse anesthesia problems. No complications reported per nursing. CITLALI PHAN CRNA Feb 27, 2018 08:21
--- NOTE | 2018-02-27 09:00 | NUR ---
A.M. ASSESSMENT COMPLETED. VSS. CARING FOR IN ROOM.
[2018-02-27] MEDS ORDERED: TETANUS,DIPTH,PERTUSS P/F (BOOSTRIX) 0.5 ML VIAL IM ONE (09:50)
[2018-02-27] MEDS: HYDROcodone/APAP 5 MG/325 MG (LORTAB) TAB PO PRN ×2 (09:55→20:56)
--- NOTE | 2018-02-27 09:55 | NUR ---
LORTAB 1 TAB P.O. FOR C/O ABD CRAMPING. DENIES HEAVY BLEEDING OR PASSING CLOTS. INFORMED TO ALERT RN IF HAVING EGG SIZED CLOT OR LARGER.
[2018-02-27] MEDS ORDERED: FLU QUADRIvalent (5+ YOA) 2018-2019 (AFLURIA) 0.5 ML IM ONE (10:00)
--- NOTE | 2018-02-27 10:07 | NUR ---
TDAP AND FLU VACCINES GIVEN.
--- NOTE | 2018-02-27 11:30 | NUR ---
DECISION TO START . HAS BEEN IN ROOM. DOING WELL. PT CONTINUES TO HAVE LOTS OF CRAMPING.
[2018-02-27 13:00] VITALS: BP 130/77
--- NOTE | 2018-02-27 13:30 | NUR ---
EATING STORK MEAL.
--- NOTE | 2018-02-27 15:30 | NUR ---
PT FEEDING INFANT A BOTTLE. CONTINUES TO CARE FOR IN ROOM.
--- NOTE | 2018-02-27 17:30 | NUR ---
EATING DINNER. REMAIN IN ROOM. OFFERS NO COMPLAINTS.
[2018-02-27 18:00] VITALS: BP 121/74
--- NOTE | 2018-02-27 18:15 | NUR ---
ROUTINE MOTRIN GIVEN. DENIES NEED FOR LORTAB AT THIS TIME. STATES GOING TO GIVE A BOTTLE. S.O. LEFT EARLIER.
[2018-02-27 20:49] VITALS: BP 129/79
--- NOTE | 2018-02-27 20:49 | NUR ---
PM shift assessment completed and vital signs obtained, see interventions. Plan of care reviewed with patient. Patient verbalizes understanding and denies any current questions or concerns at this time.
--- NOTE | 2018-02-27 20:56 | NUR ---
Lortab 1 PO given for patient's c/o cramping rated 4/10. Patient denies any further needs or concerns at this time. Fresh water provided.
--- NOTE | 2018-02-27 22:36 | NUR ---
[place] tray provided.
[2018-02-27 23:58] VITALS: BP 136/68
--- NOTE | 2018-02-27 23:58 | NUR ---
Scheduled Motrin PO given. Patient denies any current needs or concerns.
--- NOTE | 2018-02-28 04:05 | NUR ---
Assessment completed at bedside. This nurse took baby to nursery per mothers request. Pt. denies any current questions or concerns at this time. Will continue to monitor.
[2018-02-28 06:10] VITALS: BP 105/63
[2018-02-28] MEDS: IBUPROFEN 600 MG (MOTRIN) TAB PO SCH ×2 (06:11→11:43)
--- NOTE | 2018-02-28 07:20 | NUR ---
DR. PHILIPPE HERE TO SEE PT.
--- NOTE | 2018-02-28 07:36 | Discharge Summary ---
Diagnosis/Chief Complaint Date of Admission Feb 26, 2018 at 06:10 Date of Discharge February 28, 2018 Discharge Date: Feb 27, 2018 Discharge Time: 07:30 Admission Diagnosis Admission Diagnosis 1. Intrauterine at 39 weeks gestation Discharge Diagnosis 1. Intrauterine at 39 weeks gestation Reason Hospital Visit 27-year-old 4 now4 for female who initially presents to labor and delivery for induction at 39 weeks gestation. Patient was admitted during the morning of February 26 and underwent AROM Her care was uneventful. She did not admit to significant contractions on admission. Discharge Summary-OBS Procedures 1. Epidural per anesthesia 2 Spontaneous vaginal delivery Discharge Physical Examination Allergies: Coded Allergies: No Known Drug Allergies (Unverified , 08/07/08) Vitals & I&Os Vital Signs Date Time Temp Pulse Resp B/P (MAP) Pulse Ox O2 Delivery O2 Flow Rate FiO2 02/28/18 06:10 97.4 60 16 105/63 (77) 99 Room Air 02/26/18 13:40 15.00 General Appearance: No Acute Distress HEENT: EOMI Cardiovascular: Regular Rate Abdominal: Normal Bowel Sounds, Soft (with uterus firm) Skin: No Rashes Psych/Mental Status: Mental Status NL Hospital Course Following delivery patient underwent artificial rupture of membranes with clear fluid noted. She required Pitocin augmentation. She also had received epidural during the course of her labor. Eventually she went on to completion and delivered over an intact perineum a term viable female. If it received Apgars of 8 at 1 minute and 9 at 5 minutes. Following delivery she underwent routine care orders. There was no complications during the remainder of hospital stay. She did experienced typical uterine cramping but this was controlled with ibuprofen and for breakthrough discomfort Lortab. Her hemoglobin on day#1 after delivery was 8.8 compared to 9.1 on admission. Patient tolerated regular diet and was ambulatory without discomfort to the lower extremity and no shortness of breath. She was felt ready for dismissal during the morning of February 28, 2018. Discharge Instructions to patient/family Please see electronic discharge instructions given to patient. Discharge Medications Reviewed and agree with Discharge Medication list on patient's Discharge Instruction sheet Clinical Quality Measures DVT/VTE Risk/Contraindication: Risk Factor Score Per Nursin RFS Level Per Nursing on Admit: 1=Low/No VTE PPX ESE PHILIPPE MD Feb 28, 2018 07:36
[2018-02-28 08:00] VITALS: BP 118/81
--- NOTE | 2018-02-28 08:00 | NUR ---
A.M. ASSESSMENT COMPLETED. VSS. PLANNING TO GO HOME TODAY.
--- NOTE | 2018-02-28 10:00 | NUR ---
CONTINUES TO CARE FOR IN ROOM.
--- NOTE | 2018-02-28 12:00 | NUR ---
DISCHARGE INSTRUCTIONS REVIEWED WITH COPY TO PT. RXS GIVEN. STATES UNDERSTANDING OF ALL INSTRUCTIONS AND NEED TO F/U SCHEDULED.
[2018-02-28 13:00] VITALS: BP 118/81
--- NOTE | 2018-02-28 13:00 | NUR ---
DISMISSED AMB FROM [facility] WITH INFANT TO FAMILY CAR IN STABLE CONDITION ACC BY [facility] AND TERESA CADE RN.
== END 2018-02-28 13:00 | disposition home or self-care (01) | DRG 807 ==
LOC: LDRP 06:10
PROVIDERS: ADMIT Family Medicine; ATTEND Family Medicine
PROC: 10E0XZZ Delivery of Products of Conception, External Approach (ICD-10-PCS; principal; 2018-02-26)
DX: O80 Encounter for full-term uncomplicated delivery (principal); Z3A.39 39 weeks gestation of pregnancy; Z37.0 Single live birth
CPT/HCPCS: 36415; 85025; 86850; 86900; 86901; 90471; 90686; 90715